=== PATIENT | female | born 1945 | race Hispanic/Latino ===

== ENCOUNTER 2019-07-06 06:55 | Inpatient (IN) | payer OTHER, SELFPAY ==
[2019-07-06] VITALS (15 sets, daily range): BP systolic 141–191; BP diastolic 66–93; PULSE 66–97; RESP 16–22; TEMP 36.4–36.9; O2SAT 96–99; BMI 25.8
--- NOTE | ~2019-07-06 | XR_ITS ---
EXAMINATION: XR chest 2V DATE: 07/06/2019 07:37 INDICATION: Chest pain. Heart racing shaking and cold. TECHNIQUE: frontal and lateral views of the chest were obtained. COMPARISON: Chest radiograph dated 06/29/19 FINDINGS: The lungs remain clear with no focal airspace opacities, pulmonary edema, pleural effusion or pneumot horax. The cardiomediastinal silhouette is normal. Atherosclerotic and tortuous thoracic aorta. Mild thoracic spondylosis. IMPRESSION: 1. No acute cardiopulmonary disease. Reviewed, dictated and finalized at location A. ET SEWING MACHINE OPERATOR
--- NOTE | 2019-07-06 07:13 | ECG_ITS ---
Measurements Intervals [place] Rate: 76 P: 57 [place]: 155 QRS: 60 QRSD: 90 T: 30 QT: 357 QTc: 404 Interpretive Statements SINUS RHYTHM BORDERLINE ST ABNORMALITY- LATERAL LEADS BASELINE ARTIFACT- I, II, III, AVR, AVL, AVF BORDERLINE ECG Electronically Signed On 07-06-2019 8:18:44 NITRATOR OPERATOR by Je Andujar D.O.
[2019-07-06 07:39] LABS: Basophils Absolute Auto 0.1 K/mm3 (0.0-0.1); Basophils Percent Auto 0.9 % (0.2-1.2); Eosinophils Absolute Auto 0.2 K/mm3 (0-0.3); Eosinophils Percent Auto 3.4 % (0-4.4); Hematocrit 35.5 % (37.0-47.0); Immature Granulocyte Absolute 0.02 K/mm3 (0.00-0.031); Immature Granulocyte Percent A 0.3 % (0-0.5); Lymphocytes Absolute Auto 1.65 K/mm3 (0.9-3.2); Lymphocytes Percent Auto 24.4 % (18.3-44.2); Mean Corpuscular HGB Conc 33.8 g/dl (32-36); Mean Corpuscular Hemoglobin 30.2 pg (26-34); Mean Corpuscular Volume 89.4 fl (80-100); Mean Platelet Volume 10.2 fl (7.4-10.4); Monocytes Absolute Auto 0.6 K/mm3 (0.1-0.6); Monocytes Percent Auto 8.9 % (2.6-8.5); Neutrophils Absolute Auto 4.2 K/mm3 (1.3-6.7); Neutrophils Percent Auto 62.1 % (45.5-73.1); Platelet Count Result 333 k/mm3 (150-375); Red Blood Count 3.97 M/mm3 (4.2-5.4); Red Cell Distribution Width 12.5 % (11.5-14.5); White Blood Count 6.8 K/mm3 (4.5-10.0)
[2019-07-06] MEDS: NITROGLYCERIN OINTMENT 1 INCH DOSE TRANSDERM (07:40)
--- NOTE | 2019-07-06 07:49 | ED.CHESTPAIN ---
HPI - Chest Pain General Chief Complaint: Chest Pain Stated Complaint: cp Time Seen by Provider: 07/06/19 06:59 Source: patient, family and old records reviewed Mode of arrival: ambulatory Limitations: language barrier (Patient Lithuanian-speaking, bilingual daughter translating effectively) History of Present Illness HPI narrative: Patient is a 74-year-old female who presents to the emergency department with her daughter with report of chest heaviness, shortness of breath, chills, and palpitations. Patient woke up with symptoms approximately an hour prior to arrival and was very shaky. Patient was just discharged from the hospital on 07/03/2019. She was admitted on 06/29/2019 for chest pain. She had unremarkable CT angiography of the chest to rule out pulmonary embolism and aortic pathology for her symptoms. She did have a positive stress test and was taken for cardiac catheterization. Patient was found to have multivessel coronary artery disease and had placement of 3 drug-eluting stents on 06/30/2019. Patient was taken back to the cardiac Supervisor Electronics Inspection for recurrent chest pain. Stents were found to be patent, but with sluggish blood flow. Patient was discharged home with numerous new medications. 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 Onset (ago): hour(s) Onset: during rest Quality: heaviness Associated symptoms: dyspnea, palpitations and other (chills) Risk Factors Coronary artery disease risk factors: hyperlipidemia and hypertension Related Data Home Medications Medication Instructions Recorded Confirmed Mexazolam 1 mg PO DAILY PRN 07/01/19 07/06/19 Neurobiotic 1.5 1 tab-cap BYMOUTH DAILY 07/01/19 07/06/19 Allergies Allergy/AdvReac Type Severity Reaction Status Date / Time No Known Allergies Allergy Verified 07/06/19 07:08 Review of Systems Review of Systems: All systems reviewed & are unremarkable except as noted in HPI and below Constitutional: Constitutional: Reports chills Cardiovascular: Cardiovascular: Reports chest pain, Reports rapid heart rate and Reports palpitations Respiratory: Respiratory: Reports dyspnea PMFSH Past Medical History Medical History (Updated 07/06/19 @ 12:29 by Patricia Hernandez MD) Anxiety CAD (coronary artery disease) Hyperlipidemia Hypertension Surgical History Surgical History (Updated 07/06/19 @ 12:09 by Mayra Mcintyre MD) History of bladder suspension procedure History of cardiac cath History of hysterectomy Family History Family History Other Cerebrovascular accident Unknown family medical history Social History Social History Social History: The patient is from the [place]. She lives with her daughter and her family for much of the year, but frequently returns to the [facility]. 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 She designates her daughter, Kayleigh Meneses, as her surrogate decision maker and she wishes to be a full code. She denies alcohol, tobacco, and drug abuse. Smoking status: Never smoker Exam Const: General: cooperative, no acute distress and alert Nutritional Appearance: well nourished Orientation/consciousness: oriented x3 Limitations: no limitations HENMT: Mouth: Yes lip normal and Yes moist mucous membranes Resp: Effort & Inspection: normal respiratory effort Auscultation: clear to auscultation bilaterally Cardio: Rate: regular rate Rhythm: regular rhythm GI: GI Palp: Yes soft and No tender Auscultation: normal bowel sounds Skin: General skin exam: normal color Neuro: General: oriented x3 Cognition (Neuro): normal cognition Speech: normal speech Extrem: General: normal to inspection, full ROM and no clubbing, cyanosis or edema Psych: Mental Status: mental status grossly normal Affect: normal affect Attitude: cooperative Course C
[2019-07-06 07:51] LABS: Partial Thromboplastin Time 27.1 SECONDS (22.3-36.8); Prothrombin Time 12.6 Seconds (11.1-14.7)
[2019-07-06 07:56] LABS: Alanine Aminotransferase 25 U/L (4-35); Albumin Level 4.4 g/dL (3.5-5.1); Alkaline Phosphatase 49 U/L (38-126); Aspartate Amino Transferase 32 U/L (14-36); Bilirubin,Total 0.4 mg/dL (0.2-1.3); Blood Urea Nitrogen 9 mg/dL (7-17); Calcium 9.5 mg/dL (8.4-10.2); Carbon Dioxide 25 mmol/L (22-30); Chloride 96 mmol/L (98-107); Estimated Glomerular Filt Rate > 60; Glucose 137 mg/dL (65-105); Potassium 4.3 mmol/L (3.4-5.0); Sodium 134 mmol/L (137-145)
[2019-07-06 08:03] LABS: NT Pro B Type Natriuretic Pept 508 PG/ML (5-100)
[2019-07-06] MEDS: ASPIRIN 81 MG CHEWABLE TABLET 324 MG PO (08:28)
--- NOTE | 2019-07-06 12:08 | PM.IMHP ---
H&P: HPI History of Present Illness Chief complaint: chest pain/elevated troponin Narrative: Date of service 07/06/2019 Jayshree Duron is a 74 year old female with past medical history of hypertension, number loss who was admitted on 06/30/2019 underwent cardiac catheterization for chest pain and received drug-eluting stent to left circumflex artery and to the LAD. She developed chest pain that night and was taken back to the fence laborer that showed patent stents in the LAD and the left circumflex artery. The cath films were reviewed myself and showed that she had a small jailed branch from the distal edge of stent. And then the terminal end of the left circumflex artery bifurcates and 1 of the small branches has 95% stenosis. Patient speaks Wallisian only and her daughter is at bedside who helped translate. She was sleeping at 5:00 a.m. this morning when she suddenly woke up feeling central chest heaviness associated with shortness of breath, shakiness. The pain was very intense and severe and relieved when she came into the emergency room after getting nitroglycerin. Denies dizziness, syncope, fever, runny nose, cough, sore throat, lower limb edema. On arrival to the emergency room her blood pressure was 190/90. EKG reviewed myself shows sinus rhythm and nonspecific ST changes in the lateral leads. First troponin was 1.6 and the 2nd troponin 1.34. Chest x-ray reviewed myself looks unremarkable. Review of Systems Review of Systems: All systems reviewed & are unremarkable except as noted in HPI and below Constitutional: Constitutional: Denies chills, Denies fatigue, Denies fever(s), Denies headache(s) and Denies snoring Eyes: Eyes: Denies eye discharge and Denies loss of vision ENT: Denies dizziness, Denies headache(s), Denies nasal discharge and Denies sore throat Cardiovascular: Cardiovascular: Reports as per HPI, Reports chest pain, Denies syncope, Denies rapid heart rate, Denies leg edema, Reports dyspnea, Denies dyspnea on exertion, Denies orthopnea and Denies paroxysmal nocturnal dyspnea Respiratory: Respiratory: Denies cough, Reports dyspnea, Denies dyspnea on exertion, Denies snoring and Denies wheezing Gastrointestinal: Gastrointestinal: Denies abdominal pain, Denies diarrhea, Denies nausea and Denies vomiting Genitourinary: Genitourinary: Denies hematuria, Denies urinary frequency, Denies dysuria and Denies flank pain Musculoskeletal: Musculoskeletal: Denies myalgias, Denies arthralgias and Denies joint swelling Neurologic: Denies Abnormal speech present, Denies dizziness, Denies syncope, Denies headache(s), Denies focal weakness, Denies loss of vision and Reports memory loss Psychiatric: Psychiatric: Denies anxiety and Denies depression Endocrine: Endocrine: Denies cold intolerance, Denies fatigue and Denies heat intolerance Hematologic/Lymphatic: Hematologic/Lymphatic: Denies easy bleeding and Denies easy bruising Allergic/Immunologic: Allergic/Immunologic: Denies urticaria and Denies wheezing PMFSH Past Medical History Medical History Anxiety CAD (coronary artery disease) Hyperlipidemia Hypertension Surgical History Surgical History (Updated 07/06/19 @ 12:09 by Mayra Mcintyre MD) History of bladder suspension procedure History of cardiac cath History of hysterectomy Family History Family History Other Cerebrovascular accident Unknown family medical history Social History Social History Social History: The patient is from the [place]. She lives with her daughter and her family for much of the year, but frequently returns to the [place]. 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 She designates her daughter, Kayleigh Meneses, as her surrogate decision maker and she wishes to be a full code. She denies alcohol, tobacco, and d
[2019-07-06] MEDS: ROSUVASTATIN 10 MG TABLET PO (13:44)
[2019-07-06] MEDS: AMLODIPINE BESYLATE 5 MG TABLET PO (13:44)
[2019-07-06] MEDS: lisinopriL 20 MG TABLET PO (13:44)
[2019-07-06] MEDS: carvediloL 12.5 MG TABLET PO ×2 (13:44→20:14)
[2019-07-06] MEDS: CLOPIDOGREL BISULFATE 75 MG TABLET PO (13:44)
[2019-07-06] MEDS: ASPIRIN 81 MG CHEWABLE TABLET PO (13:44)
[2019-07-06] MEDS: ACETAMINOPHEN 500 MG TABLET PO (17:07)
[2019-07-07] VITALS (16 sets, daily range): BP systolic 119–166; BP diastolic 67–79; PULSE 66–93; RESP 16–20; TEMP 36.2–36.8; O2SAT 97–100
[2019-07-07] MEDS: ASPIRIN 81 MG CHEWABLE TABLET PO (09:47)
[2019-07-07] MEDS: AMLODIPINE BESYLATE 5 MG TABLET PO (09:47)
[2019-07-07] MEDS: carvediloL 12.5 MG TABLET PO ×2 (09:47→20:32)
[2019-07-07] MEDS: lisinopriL 20 MG TABLET PO (09:48)
[2019-07-07] MEDS: ROSUVASTATIN 10 MG TABLET PO (09:48)
[2019-07-07] MEDS: CLOPIDOGREL BISULFATE 75 MG TABLET PO (09:48)
[2019-07-07] MEDS: ACETAMINOPHEN 500 MG TABLET PO (09:50)
--- NOTE | 2019-07-07 14:34 | PM.PNCARD ---
Progress Note: A&P Additional Plan This patient with multivessel coronary disease had stenting performed of high-grade lesions in her circumflex OM, proximal circumflex and proximal LAD last week. He does have known small vessel disease as detailed by my partners angiographically which is not really angiographically amenable to PCI but appears to be creating symptomatology. This needs to be treated medically. I do not see further reason to return her to the greens laborer as that was done last week with no problems identified in the large segments which were stented. I am going to add oral nitrates to her regimen as well and consider discharging her tomorrow if she is stable in ambulating on the floor without ischemic type chest pain. Time Spent With Patient Time with patient: 15 - 25 minutes Subjective Date/time seen: Date of service, 07/07/19 14:34 Interval history: Follow-up visit for patient with known coronary artery disease, recent percutaneous intervention and readmission with chest pain Patient appears to be very comfortable I do not believe she is having any ischemic chest pain at this time she describes momentary brief episodes of left inframammary pain. History is difficult and challenging as she speaks no Macedonian Exam Const: General: comfortable and no acute distress HENMT: Mouth: Yes moist mucous membranes Eyes: Sclera: sclerae normal Pupils: PERRL Neck: Neck: supple and no JVD Thyroid: thyroid normal Resp: Effort & Inspection: normal respiratory effort Auscultation: clear to auscultation bilaterally Cardio: Rate: regular rate Rhythm: regular rhythm Other: No murmurs gallops rubs or extra sounds GI: Auscultation: normal bowel sounds Skin: General skin exam: normal color Extrem: General: normal to inspection Objective Data Vital Signs Vital Signs: Vital Signs - 24 hr 07/06/19 16:00 07/06/19 17:20 07/06/19 18:00 Temperature 36.4 C L Pulse Rate 69 70 70 Respiratory Rate 20 Blood Pressure 169/77 H Pulse Oximetry 99 07/06/19 20:00 07/06/19 20:14 07/06/19 22:00 Temperature 36.9 C Pulse Rate 76 97 75 Respiratory Rate 18 Blood Pressure 146/66 H Pulse Oximetry 99 07/07/19 00:00 07/07/19 02:00 07/07/19 04:00 Temperature 36.8 C Pulse Rate 68 67 69 Respiratory Rate 16 18 Blood Pressure 142/71 H 166/75 H Pulse Oximetry 100 100 07/07/19 06:00 07/07/19 08:00 07/07/19 08:41 Temperature 36.2 C L Pulse Rate 66 67 70 Respiratory Rate 18 Blood Pressure 146/75 H Pulse Oximetry 97 07/07/19 09:47 07/07/19 10:00 07/07/19 12:00 Temperature Pulse Rate 72 76 74 Respiratory Rate Blood Pressure Pulse Oximetry 07/07/19 12:32 07/07/19 14:00 Temperature 36.7 C Pulse Rate 70 71 Respiratory Rate 16 Blood Pressure 119/69 Pulse Oximetry 98 Intake/Output Intake/Output: Intake & Output 07/04/19 07/05/19 07/06/19 07/07/19 23:59 23:59 23:59 23:59 Intake Total 920 660 Output Total 0 Balance 920 660 Meds/Results Medications: Active Medications Generic Name Dose Route Start Last Admin Trade Name Freq PRN Reason Stop Dose Admin Acetaminophen 500 mg 07/06/19 12:16 07/07/19 09:50 Tylenol Tablet PO 500 mg Q6H PRN Administration Mild Pain (1-3) or Fever Amlodipine Besylate 5 mg 07/06/19 09:00 07/07/19 09:47 Norvasc PO 5 mg QAM [facility] Administration Aspirin 81 mg 07/06/19 08:00 07/07/19 09:47 Aspirin Chewable PO 81 mg DAILY@0800 [facility] Administration Carvedilol 12.5 mg 07/06/19 12:20 07/07/19 09:47 Coreg PO 12.5 mg Q12HR [facility] Administration Clopidogrel Bisulfate 75 mg 07/06/19 09:00 07/07/19 09:48 Plavix PO 75 mg DAILY [facility] Administration Lisinopril 20 mg 07/06/19 09:00 07/07/19 09:48 Prinivil PO 20 mg QAM [facility] Administration Nitroglycerin 0.4 mg 07/06/19 12:18 Nitrostat Subl 0.4 Mg (1/150) SUBLINGUAL Q5MIN PRN Chest Pain Ondansetron HCl 4 mg 01
[2019-07-08] VITALS (21 sets, daily range): BP systolic 53–138; BP diastolic 34–72; PULSE 38–86; RESP 12–20; TEMP 36–36.4; O2SAT 95–100
[2019-07-08] MEDS: lisinopriL 20 MG TABLET PO (08:55)
[2019-07-08] MEDS: CLOPIDOGREL BISULFATE 75 MG TABLET PO (08:55)
[2019-07-08] MEDS: ROSUVASTATIN 10 MG TABLET PO (08:55)
[2019-07-08] MEDS: ASPIRIN 81 MG CHEWABLE TABLET PO (08:55)
[2019-07-08] MEDS: ISOSORBIDE MONONITRATE 30 MG TAB.ER.24H PO (08:55)
[2019-07-08] MEDS: AMLODIPINE BESYLATE 5 MG TABLET PO (08:55)
[2019-07-08] MEDS: carvediloL 12.5 MG TABLET PO ×2 (08:56→20:11)
--- NOTE | 2019-07-08 09:47 | ECG_ITS ---
Measurements Intervals [place] Rate: 64 P: 28 MD: 190 QRS: 31 QRSD: 89 T: 37 QT: 413 QTc: 427 Interpretive Statements SINUS RHYTHM VOLTAGE CRITERIA FOR LVH BORDERLINE ECG Electronically Signed On 07-08-2019 10:11:21 SENIOR PRODUCT ANALYST by Je Andujar D.O.
[2019-07-08 09:53] LABS: Glucose Point of Care 175 (65-105)
[2019-07-08] MEDS: SODIUM CHLORIDE 0.9% IV 500 ML 999 ML IV CONT (10:02)
--- NOTE | 2019-07-08 12:44 | PM.PNCARD ---
Progress Note: A&P Additional Plan Episode of symptomatic hypotension this morning obviously precludes consideration for discharge I will discontinue her amlodipine and isosorbide. I will reduce the dose of JONATHAN-inhibitor by 50% Continue aspirin dual anti-platelet therapy for now without changes Continue the beta-cristian for now without changes Click close observation for recurrent episodes of problematic hypotension Time Spent With Patient Time with patient: 15 - 25 minutes Subjective Date/time seen: Date of service, 07/08/19 12:44 Interval history: Follow-up visit in patient with coronary artery disease, recent percutaneous intervention and recurrent symptoms of chest pain requiring admission for evaluation Patient was doing very well until early this morning after her morning meds she became symptomatic lead hypotensive with systolic pressures in the mid 50s and became either poorly responsive or unresponsive. She regained responsiveness quickly after lying in bed in the Trendelenburg position for a few minutes Patient had no chest pain during the event today and ECG done in a stat fashion did not show any ST segment deviation. There were no arrhythmias on the monitor other than sinus bradycardia. Exam Const: General: comfortable and no acute distress HENMT: Mouth: Yes moist mucous membranes Eyes: Sclera: sclerae normal Pupils: PERRL Neck: Neck: supple and no JVD Thyroid: thyroid normal Resp: Effort & Inspection: normal respiratory effort Auscultation: clear to auscultation bilaterally Cardio: Rate: regular rate Rhythm: regular rhythm Other: No murmur no gallop no rub GI: Auscultation: normal bowel sounds Skin: General skin exam: normal color Extrem: General: normal to inspection Objective Data Vital Signs Vital Signs: Vital Signs - 24 hr 07/07/19 14:00 07/07/19 16:00 07/07/19 18:00 Temperature 36.7 C Pulse Rate 71 71 93 Respiratory Rate 20 Blood Pressure 138/79 Pulse Oximetry 98 07/07/19 20:00 07/07/19 20:32 07/07/19 22:00 Temperature 36.2 C L Pulse Rate 70 82 70 Respiratory Rate 16 Blood Pressure 147/67 H Pulse Oximetry 98 07/08/19 00:00 07/08/19 02:00 07/08/19 04:00 Temperature 36.3 C L Pulse Rate 65 64 61 Respiratory Rate 20 Blood Pressure 132/58 L 138/68 Pulse Oximetry 99 07/08/19 06:00 07/08/19 08:00 07/08/19 08:56 Temperature 36.2 C L Pulse Rate 64 69 74 Respiratory Rate 16 Blood Pressure 137/72 Pulse Oximetry 98 07/08/19 09:42 07/08/19 10:00 07/08/19 10:05 Temperature Pulse Rate 38 L Respiratory Rate Blood Pressure 53/34 L 53/34 L 83/48 L Pulse Oximetry 07/08/19 10:19 07/08/19 10:35 07/08/19 11:58 Temperature 36.0 C L Pulse Rate 58 L 66 Respiratory Rate 16 Blood Pressure 107/60 105/53 L Pulse Oximetry 100 07/08/19 12:00 Temperature Pulse Rate 63 Respiratory Rate Blood Pressure Pulse Oximetry Intake/Output Intake/Output: Intake & Output 07/05/19 07/06/19 07/07/19 07/08/19 23:59 23:59 23:59 23:59 Intake Total 920 1230 1050 Output Total 0 Balance 920 1230 1050 Meds/Results Medications: Active Medications Generic Name Dose Route Start Last Admin Trade Name Freq PRN Reason Stop Dose Admin Acetaminophen 500 mg 07/06/19 12:16 07/07/19 09:50 Tylenol Tablet PO 500 mg Q6H PRN Administration Mild Pain (1-3) or Fever Aspirin 81 mg 07/06/19 08:00 07/08/19 08:55 Aspirin Chewable PO 81 mg DAILY@0800 [facility] Administration Carvedilol 12.5 mg 07/06/19 12:20 07/08/19 08:56 Coreg PO 12.5 mg Q12HR [facility] Administration Clopidogrel Bisulfate 75 mg 07/06/19 09:00 07/08/19 08:55 Plavix PO 75 mg DAILY [facility] Administration Lisinopril 10 mg 07/08/19 12:44 Prinivil PO QAM [facility] Nitroglycerin 0.4 mg 07/06/19 12:18 Nitrostat Subl 0.4 Mg (1/150) SUBLINGUAL Q5MIN PRN Chest Pain Ondansetron HCl 4 mg 07/06/19 12:18
[2019-07-08] MEDS: ACETAMINOPHEN 500 MG TABLET PO (19:40)
[2019-07-09] VITALS (8 sets, daily range): BP systolic 115–142; BP diastolic 60–71; PULSE 64–88; RESP 16; TEMP 35.8–36.1; O2SAT 96–98
[2019-07-09 09:13] LABS: Glucose Point of Care 124 (65-105)
[2019-07-09] MEDS: lisinopriL 10 MG TABLET PO (09:45)
[2019-07-09] MEDS: carvediloL 12.5 MG TABLET PO (09:45)
[2019-07-09] MEDS: ASPIRIN 81 MG CHEWABLE TABLET PO (09:45)
[2019-07-09] MEDS: CLOPIDOGREL BISULFATE 75 MG TABLET PO (09:45)
[2019-07-09] MEDS: ROSUVASTATIN 10 MG TABLET PO (09:45)
--- NOTE | 2019-07-09 11:07 | PM.PNCARD ---
Progress Note: A&P Additional Plan Cardiovascular status appears to be stable for discharge Patient's daughter indicates she was on some type of anxiety medication prior to admission which I advised her to continue at home a particularly since she indicated that she was experiencing night terrors which were likely related to the symptomatology that prompted the readmission and the concern on the day of admission. Time Spent With Patient Time with patient: 15 - 25 minutes Subjective Date/time seen: Date of service, 07/09/19 11:07 Interval history: Follow-up visit for coronary artery disease, recent percutaneous revascularization and recurrent symptomatology. Patient feeling well this morning appears to be asymptomatic eating lunch with family. No cardiovascular symptoms No difficulty with problematic hypotension since medicines were adjusted yesterday(amlodipine and isosorbide were discontinued) . Patient's daughter confided with me today that she is suspicious that on the day of admission the problem was related to night terrors which the patient does have on occasion and with related to the symptomatology that prompted the readmission. Exam Const: General: comfortable and no acute distress HENMT: Mouth: Yes moist mucous membranes Eyes: Sclera: sclerae normal Pupils: PERRL Neck: Neck: supple and no JVD Thyroid: thyroid normal Resp: Effort & Inspection: normal respiratory effort Auscultation: clear to auscultation bilaterally Cardio: Rate: regular rate Rhythm: regular rhythm Other: No murmurs gallops or rubs GI: Auscultation: normal bowel sounds Extrem: General: normal to inspection Objective Data Vital Signs Vital Signs: Vital Signs - 24 hr 07/08/19 11:58 07/08/19 12:00 07/08/19 14:16 Temperature 36.0 C L Pulse Rate 66 63 70 Respiratory Rate 16 Blood Pressure 105/53 L Pulse Oximetry 100 07/08/19 16:00 07/08/19 18:31 07/08/19 19:33 Temperature 36.4 C 36.3 C L Pulse Rate 68 86 75 Respiratory Rate 12 18 Blood Pressure 112/64 115/57 L Pulse Oximetry 95 98 07/08/19 20:00 07/08/19 20:11 07/08/19 22:00 Temperature Pulse Rate 71 81 69 Respiratory Rate Blood Pressure Pulse Oximetry 07/08/19 23:48 07/09/19 00:00 07/09/19 02:00 Temperature Pulse Rate 71 67 65 Respiratory Rate Blood Pressure 121/60 Pulse Oximetry 98 07/09/19 03:53 07/09/19 04:00 07/09/19 05:59 Temperature 36.1 C L Pulse Rate 65 64 66 Respiratory Rate 16 Blood Pressure 115/60 Pulse Oximetry 98 07/09/19 08:00 07/09/19 09:45 07/09/19 10:10 Temperature 35.8 C L Pulse Rate 84 70 68 Respiratory Rate 16 Blood Pressure 142/71 H Pulse Oximetry 96 Intake/Output Intake/Output: Intake & Output 07/06/19 07/07/19 07/08/19 07/09/19 23:59 23:59 23:59 23:59 Intake Total 920 1230 1920 1070 Output Total 0 400 Balance 920 1230 1920 670 Meds/Results Medications: Active Medications Generic Name Dose Route Start Last Admin Trade Name Freq PRN Reason Stop Dose Admin Acetaminophen 500 mg 07/06/19 12:16 07/08/19 19:40 Tylenol Tablet PO 500 mg Q6H PRN Administration Mild Pain (1-3) or Fever Aspirin 81 mg 07/06/19 08:00 07/09/19 09:45 Aspirin Chewable PO 81 mg DAILY@0800 [facility] Administration Carvedilol 12.5 mg 07/06/19 12:20 07/09/19 09:45 Coreg PO 12.5 mg Q12HR [facility] Administration Clopidogrel Bisulfate 75 mg 07/06/19 09:00 07/09/19 09:45 Plavix PO 75 mg DAILY [facility] Administration Lisinopril 10 mg 07/08/19 12:44 07/09/19 09:45 Prinivil PO 10 mg QAM [facility] Administration Nitroglycerin 0.4 mg 07/06/19 12:18 Nitrostat Subl 0.4 Mg (1/150) SUBLINGUAL Q5MIN PRN Chest Pain Ondansetron HCl 4 mg 07/06/19 12:18 Zofran Inj IV PUSH Q6H PRN Nausea And Vomiting Rosuvastatin Calcium 10 mg 07/06/19 09:00 07/09/19 09:45 Crestor PO 10 mg DAILY [facility] Administration Radi
--- NOTE | 2019-08-24 06:52 | PM.DS ---
DS: Diagnosis Admitting Diagnosis Admitting Diagnosis: Chest pain, unspecified DS: Summary Hospital Course Reason for hospitalization: History of coronary artery disease, recent PCI, recurrence chest pain Hospital Course: This is a 74-year-old patient with a history of coronary artery disease who recently underwent PCI to her circumflex and LAD and since then has been having recurrent episodes of momentary sharp fleeting episodes of chest pain that are very atypical of myocardial ischemia. She has been admitted to the hospital a couple of times since then because of these symptoms and concern regarding her cardiac status. On the 1st of these episodes she was brought back to the cardiac catheterization lab and found angiographically to have patent stents. She does have some distal disease in her OM circumflex distal to the area that was stented which is not amenable to PCI which presumably was the cause of some of her symptoms. Most of her symptoms however were very atypical and non antral by history. There was significant difficulty with the patient's evaluation clinically because she does not speak [place] and all the history is obtained through either family members or interpreters. In addition to this she has a significant anxiety which results in additional concern regarding her symptomatology. In any event she was hospitalized and observed in the hospital for couple of days her biomarkers did not show any evidence of acute coronary syndrome and her ECGs did not show any evidence of abrupt stent thrombosis. She did have some symptomatic hypotension and medications were adjusted to address that. She appeared to be stable at the time of discharge and was discharged to home with her family. Status at Discharge Functional status at discharge: independent ambulation Overall status at discharge: patient is back to baseline Time Spent with Patient Time attestation: Total time spent providing and/or coordinating discharge services: Time spent: Greater than 30 minutes Exam Const: General: comfortable and no acute distress HENMT: Mouth: Yes moist mucous membranes Eyes: Sclera: sclerae normal Pupils: Equal, round and reactive pupils present Neck: Neck: supple and no JVD Thyroid: thyroid normal Resp: Effort & Inspection: normal respiratory effort Auscultation: clear to auscultation bilaterally Cardio: Rate: regular rate Rhythm: regular rhythm Other: No murmur no gallop no rub GI: GI Palp: Yes Soft to palpation Auscultation: normal bowel sounds Skin: General skin exam: normal color Extrem: General: normal to inspection Discharge Plan Discharge Attending physician on discharge: Florentino Walls Consulting providers: Je Andujarert,Tone Discharging Clinician: Florentino Walls Anticipated Discharge Date/Time: 07/09/19 11:12 Patient Disposition: Home, Self-Care Activity: may shower, no straining and other - see discharge instructions Diet: heart healthy Discharge Instructions: CARDIOLOGY DISCHARGE INSTRUCTIONS HERE: ACTIVITY: Activity with precautions to avoid falls. Rise slowly from a seated or lying position. No strenuous exercise or activity. May walk. Avoid excessive heat or cold. Stay hydrated. FOLLOW-UP: Follow up with [facility] office [address] with Sydnie De Leon NP on July 27, 2019 at 3:00 p.m.. Please arrive by 3:15 p.m. for your appointment. Bring photo ID, insurance card(s) and current medication list. Sign up for [employer]. The activation code is on your appointment confirmation. WOUND CARE: Leave right groin site open to air. Wash gently pat dry when showering. Patient Instructions: Antibiotic Form, Chest Pain (GEN), Pain Management (DC) Patient Language: [place] Stand Alone Forms: General Discharge Information Follow-up/Referrals: Florentino Walls MD [Physician] - Discharge Medicat
== END 2019-07-09 11:49 | disposition home or self-care (01) | DRG 198 ==
LOC: ANHED 09:44 → ANHIMU 10:10
PROVIDERS: Admitting Provider Internal Medicine Cardiovascular Disease; Emergency Provider Emergency Medicine; PCP Family Medicine; Visit Provider Specialist
DX: R07.9 Chest pain, unspecified (principal); I10 Essential (primary) hypertension; Z95.5 Presence of coronary angioplasty implant and graft; E78.5 Hyperlipidemia, unspecified; F41.9 Anxiety disorder, unspecified; I25.10 Atherosclerotic heart disease of native coronary artery without angina pectoris; Z90.710 Acquired absence of both cervix and uterus; I95.9 Hypotension, unspecified; F51.4 Sleep terrors [night terrors]; Z28.21 Immunization not carried out because of patient refusal
CPT/HCPCS: 36415; 71046; 80053; 83880; 84484; 85025; 85610; 85730; 87804; 93005; 99285; A9270; J7030; J7040

== ENCOUNTER 2019-07-30 02:07 | Observation (INO) | payer OTHER, SELFPAY ==
[2019-07-30] VITALS (14 sets, daily range): BP systolic 146–191; BP diastolic 75–104; PULSE 59–95; RESP 14–20; TEMP 36.1–37.1; O2SAT 96–100
--- NOTE | ~2019-07-30 | XR_ITS ---
XR chest 1V portable DATE: 07/30/2019 02:58 INDICATION: Left-sided chest pain. Coronary disease, hypertension TECHNIQUE: Portable AP chest on 07/30/2019 at 0249 hours COMPARISON: 07/10/2019 portable AP chest FINDINGS: There is mild atelectasis in the lower lung zones. The lungs otherwise appear clear. Heart size is within normal range. There is aortic calcification. No pleural effusion or pulmonary va scular congestion or pneumothorax. IMPRESSION: Mild atelectasis in the lower lung zones, new since 07/10/2019 Reviewed, dictated and finalized at location A. AR MAKER
--- NOTE | ~2019-07-30 | US_ITS ---
EXAMINATION: US carotid duplex BI DATE: 07/31/2019 13:49 INDICATION: Syncope. TECHNIQUE: Grayscale, color Doppler, and pulsed Doppler images of the cervical carotid arteries were obtained. The degree of vessel stenosis is placed in one of the following categories: normal, <50%, 5 0-69%, >=70% but less than near-occlusion, near-occlusion, or total occlusion. Note that percent sten osis relative to normal distal artery lumen diameter is indirectly measured from velocity measurement s as described by Jonh, et al. Radiology 2003; 229:340-346. COMPARISON: None. FINDINGS: RIGHT: The right common carotid artery (CCA) peak systolic velocity (PSV) is 74 cm/s. The right internal car otid artery (ICA) PSV is 74 cm/s. The right ICA end-diastolic velocity (EDV) is 11 cm/s. The right IC A/CCA PSV ratio is 1.0. Grayscale and color Doppler images yield an estimate of <50% diameter reducti on from plaque in the ICA. There is antegrade flow in the right vertebral artery. LEFT: The left CCA PSV is 67 cm/s. The left ICA PSV is 126 cm/s. The left ICA EDV is 16 cm/s. The left ICA/ CCA PSV ratio is 1.9. Grayscale and color Doppler images yield an estimate of >=50% diameter reductio n from plaque in the ICA. There is antegrade flow in the left vertebral artery. IMPRESSION: 1. <50% stenosis in the right internal carotid artery. 2. 50-69% stenosis in the left internal carotid artery. Reviewed, dictated and finalized at location A. VIOR THERAPIST
--- NOTE | ~2019-07-30 | MR_ITS ---
EXAMINATION: MR brain/brain stem wo/w con EXAM DATE: 07/31/2019 13:20 INDICATION: Left facial paresthesia. TECHNIQUE: Magnetic resonance imaging (MRI) of the brain/brain stem obtained without contrast. Sagit cristopher T1, axial diffusion, gradient echo (T2*), T1, T2, FLAIR sequences obtained. Patient was then inj ected with 12 cc intravenous Multihance contrast. Axial and coronal postcontrast T1 weighted sequence s obtained. There is no prior study for comparison. FINDINGS: There are no areas of restricted diffusion to suggest acute infarction. There is no acute hemorrhage seen on the T2*, a hemosiderin sensitive sequence. No intraparenchymal brain mass lesion. There is mild periventricular and subcortical T2/FLAIR signal hyperintensity, nonspecific but probab ly related to small vessel ischemic disease (microangiopathy). There are no extra-axial collections . Flow voids are seen in the cerebral arteries on the T2-weighted sequences consistent with their ex pected patency. The orbits are unremarkable. Soft tissue is unremarkable. There are no areas of ab normal enhancement on the postcontrast images. Small right mastoid effusion. Left sphenoid is opacifi ed. IMPRESSION: 1. No acute intracranial findings. 2. Left sphenoid sinus opacified. 3. Mild microangiopathy. Reviewed, dictated and finalized at location B. GER
--- NOTE | 2019-07-30 02:09 | ECG_ITS ---
Measurements Intervals [place] Rate: 64 P: 12 [place]: 184 QRS: 3 QRSD: 88 T: 35 QT: 404 QTc: 417 Interpretive Statements SINUS RHYTHM VOLTAGE CRITERIA FOR LVH CANNOT RULE OUT SEPTAL INFARCT, AGE INDETERMINATE ABNORMAL ECG Electronically Signed On 07-30-2019 7:21:41 EMT B by Je Andujar D.O.
--- NOTE | 2019-07-30 02:11 | ED.CHESTPAIN ---
HPI - Chest Pain General Chief Complaint: Chest Pain Stated Complaint: CP Time Seen by Provider: 07/30/19 02:08 Source: patient and RN notes reviewed Mode of arrival: EMS Limitations: language barrier History of Present Illness HPI narrative: Pt is a 74 y/o female presenting to the ED via EMS c/o CP. Pt reports she woke up and had CP described as pressure earlier tonight. Pt also reports shaking and palpitations, but denies SOB or N/V. Pt states she was recently admitted due to this facility for 4 days. Pt notes she feels mildly better than from the onset of her Sx's. HPI is limited due to pt/physician language barrier. All information translated by [employer] Assistant Field Hockey Coach. Onset (ago): unknown (Earlier tonight) Timing of current episode: other (Alleviated) Quality: other (Pressure) Associated symptoms: palpitations and other (Shaking) Related Data Home Medications Medication Instructions Recorded Confirmed Mexazolam 1 mg PO DAILY PRN 07/01/19 07/10/19 lorazepam 1 mg PO DAILY PRN 07/10/19 07/10/19 Allergies Allergy/AdvReac Type Severity Reaction Status Date / Time No Known Allergies Allergy Verified 07/10/19 11:15 Review of Systems Review of Systems: Narrative: ROS is limited due to pt/physician language barrier. All information translated by [employer] Assistant Field Hockey Coach. All systems reviewed & are unremarkable except as noted in HPI and below Constitutional: Constitutional: Reports other (Shaking) Cardiovascular: Cardiovascular: Reports chest pain and Reports palpitations Respiratory: Respiratory: Denies dyspnea Gastrointestinal: Gastrointestinal: Denies nausea and Denies vomiting PMFSH Past Medical History Medical History Anxiety Anxiety disorder CAD (coronary artery disease) Chest pain Hyperlipidemia Hypertension Hypokalemia Surgical History Surgical History History of bladder suspension procedure History of cardiac cath History of hysterectomy Hx of heart artery stent x3 Family History Family History Other Cerebrovascular accident Unknown family medical history Social History Social History Social History: The patient is from the [place]. She lives with her daughter and her family for much of the year, but frequently returns to the [place]. 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 She designates her daughter, Kayleigh Meneses, as her surrogate decision maker and she wishes to be a full code. She denies alcohol, tobacco, and drug abuse. She tells me that she had 4 children raised a granddaughter so she considered 5 children Smoking status: Never smoker Alcohol intake: never Substance use: never Substance use type: does not use Gender identity (if verbalized by the patient): Female Spiritual care concerns: No Agree to blood products: Yes Exam Narrative: Exam Narrative: APPEARANCE: No acute distress, nontoxic, resting in bed EYES: EOMI HEENT: Normocephalic, atraumatic, OMM RESPIRATORY: No respiratory distress Clear to auscultation bilaterally with no rhonchi wheezing or rales. CARDIOVASCULAR: Regular rate and rhythm without murmurs rubs or gallops. ABDOMINAL: Soft, nontender, nondistended, no rebound or guarding MUSCULOSKELETAl: Moves all extremities. No clubbing, cyanosis or edema. NEURO: Awake and alert. Following commands, speech normal, no focal deficits SKIN:: Warm, dry. No rashes lesions or abrasions PSYCHIATRIC: Normal affect/mood, Course Course Emergency Course: Reviewed old records Discussed with Dr. Borden for cardiology presentation work-up. At this time he recommends admission of the patient with serial troponins with cardiology to follow as inpatient Discussed with patient and family results of workup and diagnosis. Discussed need for admission. Patient and family
[2019-07-30 02:41] LABS: Basophils Percent Auto 0.7 % (0.2-1.2); Eosinophils Absolute Auto 0.2 K/mm3 (0-0.3); Eosinophils Percent Auto 3.5 % (0-4.4); Hemoglobin 12.1 g/dL (12.0-15.0); Immature Granulocyte Absolute 0.02 K/mm3 (0.00-0.031); Immature Granulocyte Percent A 0.3 % (0-0.5); Lymphocytes Absolute Auto 1.56 K/mm3 (0.9-3.2); Lymphocytes Percent Auto 25.7 % (18.3-44.2); Mean Corpuscular HGB Conc 33.6 g/dl (32-36); Mean Corpuscular Hemoglobin 30.5 pg (26-34); Mean Corpuscular Volume 90.7 fl (80-100); Mean Platelet Volume 10.4 fl (7.4-10.4); Monocytes Absolute Auto 0.5 K/mm3 (0.1-0.6); Monocytes Percent Auto 8.9 % (2.6-8.5); Neutrophils Absolute Auto 3.7 K/mm3 (1.3-6.7); Neutrophils Percent Auto 60.9 % (45.5-73.1); Platelet Count Result 245 k/mm3 (150-375); Red Blood Count 3.97 M/mm3 (4.2-5.4); Red Cell Distribution Width 12.7 % (11.5-14.5); White Blood Count 6.1 K/mm3 (4.5-10.0)
[2019-07-30 02:49] LABS: Prothrombin Time 12.4 Seconds (11.1-14.7)
[2019-07-30 02:51] LABS: Partial Thromboplastin Time 28.1 SECONDS (22.3-36.8)
[2019-07-30 02:54] LABS: Alanine Aminotransferase 24 U/L (4-35); Albumin Level 4.1 g/dL (3.5-5.1); Alkaline Phosphatase 47 U/L (38-126); Aspartate Amino Transferase 25 U/L (14-36); Bilirubin,Total 0.2 mg/dL (0.2-1.3); Blood Urea Nitrogen 13 mg/dL (7-17); Calcium 9.3 mg/dL (8.4-10.2); Carbon Dioxide 23 mmol/L (22-30); Chloride 97 mmol/L (98-107); Estimated CRCL calculation 83 ml/min; Estimated Glomerular Filt Rate > 60; Glucose 146 mg/dL (65-105); Lipase 166 U/L (23-300); Potassium 3.9 mmol/L (3.4-5.0); Sodium 132 mmol/L (137-145)
[2019-07-30 03:06] LABS: Troponin I < 0.012 ng/mL (0.000-0.034)
--- NOTE | 2019-07-30 03:25 | PC.NURSE ---
Patient states she was previously living at home, spent 4 days in the hospital, and has been at her facility for one day. Pt states she was laying down to go to bed when pressure started, and states she thinks she is just homesick and has anxiety about being at a new place. Pt reports pain is better at this time. Pt states we can call her daughter, Kayleigh, or son-in-law, Lance, later this morning if we have questions or concerns at .
--- NOTE | 2019-07-30 05:18 | PC.NURSE ---
Per patient request, called and spoke with patient's daughter, Kayleigh, and updated her on patient condition. She states she will come to ED as soon as she is able.
--- NOTE | 2019-07-30 06:06 | PC.NURSE ---
Patient's daughter, Kayleigh, at bedside. Daughter states that patient normally takes lorazepam every night before bed, and voices concern that patient may not have received it last night before bed at her facility, which may have triggered her anxiety during the night. Patient is currently resting comfortably in stretcher in NAD, conversing with daughter. Call light remains within reach.
[2019-07-30 06:20] LABS: Troponin I < 0.012 ng/mL (0.000-0.034)
--- NOTE | 2019-07-30 06:27 | PC.NURSE ---
MD updated patient and daughter of plan to admit. Pt and daughter aware pt will be admitted to room 214.
--- NOTE | 2019-07-30 07:00 | ADMGEN ---
This patient, Jayshree Duron, was admitted to IMU Room 205-01. Patient/family oriented to hospital policies and general routines including ID bracelet, bed and alarms, visiting hours, pain management, procedures, bathroom and other care routines, personal items, smoking policy, room service/diet, and visiting hours. Valuables list has been completed. Information on how to activate the Rapid Response Team has been discussed. Patient/Family are encouraged to report perceived risks to care and to ask questions if they do not understand what they are told or what they should do.
--- NOTE | 2019-07-30 12:05 | PM.CNCAR ---
Assessment and Plan Assessment and plan (1) Chest pain: Code(s): R07.9 - Chest pain, unspecified Status: Acute Assessment and Plan: continue rule out for myocardial infarction. May be related branch vessel disease. Will start low-dose were Ranexa 500 mg p.o. b.i.d.. Continue her carvedilol and lisinopril, aspirin , clopidogrel and rosuvastatin. (2) Anxiety disorder: Code(s): F41.9 - Anxiety disorder, unspecified Status: Acute Assessment and Plan: on benzodiazepine (3) Facial numbness: Code(s): R20.0 - Anesthesia of skin Status: Acute Assessment and Plan: she may need further workup including possible CT / MRI of the brain but will defer to the hospitalist or even neurological evaluation (4) Urinary tract infection symptoms: Code(s): R39.9 - Unspecified symptoms and signs involving the genitourinary system Status: Acute Assessment and Plan: will repeat a UA (5) Hyperlipidemia: Code(s): E78.5 - Hyperlipidemia, unspecified Status: Acute Assessment and Plan: on statin (6) Hypertension: Code(s): I10 - Essential (primary) hypertension Status: Acute Assessment and Plan: above goal. Will increase her lisinopril up to 10 mg daily History of Present Illness History of Present Illness Consult date/time: 07/30/19 12:05 Requesting physician: Sanford Mckinney DO Consult reason: chest pain Reason For Visit: Chest Pain Narrative: date of service 07/30/2019 History: Patient is a 74-year-old female. Interpretation is done with the assistance of her daughter. Patient is a known to our service as she has had several admissions lately. She did undergo a cardiac catheterization in June 2019 with drug-eluting stent to the circumflex and LAD. Later that night she developed chest pain again and she was taken back to the cardiac catheterization lab which revealed patent stents but with a 95% stenosis at the end of the circumflex / small OM branches. There is also small jailed branch. She came to the hospital from the retirement because of shaking. Patient has been treated for urinary tract infection recently. Reportedly she was shaking, confused as well as having some facial numbness. Left side of her face is reportedly numb as well as her lips. She was confused as well. Whenever she arrived in the emergency department she also describes some chest tightness. Chest pain radiates to the shoulder area. No associated nausea sweatiness but she has been feeling hot. She does have associated shortness of breath. She has had no palpitations, paroxysmal nocturnal dyspnea or orthopnea. Her EKG is unremarkable. The EKG is personally reviewed. Troponins are negative to this point. She still has mild residual pain. Numbness of the face though Persists. Review of Systems Review of Systems: All systems reviewed & are unremarkable except as noted in HPI and below Constitutional: Constitutional: Reports weakness Eyes: Eyes: Denies blurry vision ENT: Reports Normal hearing present Cardiovascular: Cardiovascular: Reports chest pain Respiratory: Respiratory: Reports dyspnea Gastrointestinal: Gastrointestinal: Denies abdominal pain and Denies bloating Genitourinary: Genitourinary: Denies hematuria Musculoskeletal: Musculoskeletal: Denies neck pain Integumentary/Breasts: Skin/Breast: Denies dry skin and Denies unusual bruising Neurologic: Reports numbness Psychiatric: Psychiatric: Reports anxiety and Denies confusion Endocrine: Comments: sensation of feeling hot Hematologic/Lymphatic: Hematologic/Lymphatic: Denies easy bleeding Allergic/Immunologic: Allergic/Immunologic: Denies lip swelling PMFSH Past Medical History Medical History Anxiety Anxiety disorder CAD (coronary artery disease) Chest pain Hyperlipidemia Hypertension
[2019-07-30 13:03] LABS: Troponin I < 0.012 ng/mL (0.000-0.034)
[2019-07-30] MEDS: ACETAMINOPHEN 325 MG TABLET 650 MG PO (14:00)
--- NOTE | 2019-07-30 16:21 | PM.IMHP ---
H&P: HPI History of Present Illness Chief complaint: Chest Pain Narrative: Jayshree Duron is a 74 year old female with dementia and CAD here for chest pain and left facial numbness. Patient is Portuguese-speaking only. Her daughter is at bedside and translates. History is limited because of the patient's dementia however. Patient was hospitalized here in June 30 for chest pain. She underwent left heart catheterization which showed coronary disease requiring a BRYAN in the LAD, a BRYAN in the proximal circumflex and a BRYAN in the OM circumflex branch. There was a small distal circumflex branch of 90% stenosis that was too small for PCI. Patient returned to the hospital on July 06 for complaints of chest pain and found to have elevated troponins. It was felt related to small-vessel disease. Patient return to the emergency room on July 10 for syncope and found to have elevated troponins again. [place] the syncope related to low blood pressure from her mediations. These were adjusted. Patient discharged home on July 13. Since being at home patient has been having difficulty with confusion. She has been taking too many pills at times. Daughter states she would to nose find the pills in the trash can. Patient lives with her daughter, son-in-law and 4 grandchildren. Patient is home alone at times and gets disoriented. The patient was diagnosed with a bladder infection about 5 days ago. Patient was moved to [facility] days ago. The daughter has some care issues related to the [facility]. Patient was doing well yesterday playing bingo and visiting with family. She had no complaints at that time. Sometime last evening, patient developed chest pain that she describes as a squeezing. She also was having numbness in the left side of face, perioral region, left side of her neck and left chest. No weakness in arms or legs. When asked more questions specifically about this, the daughter states the patient is just more confused and thus history is limited in this regard. It is difficult to determine how long her symptoms have been going on. Patient also has been feeling shaky and has significant anxiety issues. 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 Vital signs are stable except blood pressure was elevated 147/104. Troponin negative. EKG showed no acute changes. Chest x-ray showed atelectasis in the lower lung medrano. Patient given a GI cocktail and admitted for further care. [facility] Past Medical History Medical History Anxiety disorder CAD (coronary artery disease) BRYAN in LAD, Circ and OM branch on 06/30/19; small vessel disease Hyperlipidemia Hypertension Surgical History Surgical History History of bladder suspension procedure History of cardiac cath History of hysterectomy Hx of heart artery stent x3 06/30/19 Family History Family History Daughter No problems noted. Other Cerebrovascular accident Unknown family medical history Social History Social History Social History: The patient is from the [place] and has been frequently returning their to stay with family. Here, she was living with her daughter and her family for much of the year but moved to [place] 2 days ago. 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 She designates her daughter, Kayleigh Meneses, as her surrogate decision maker and she is a full code. She denies alcohol, tobacco, and drug abuse. Smoking status: Never smoker Alcohol intake: never Substance use: never Substance use type: does not use Gender identity (if verbalized by the patient): Female Spiritual care concerns: No Agree to blood products: Yes Meds Home Medications and Allergies Home Medication
[2019-07-30] MEDS: RANOLAZINE 500 MG TAB.ER.12H PO (19:35)
[2019-07-30] MEDS: carvediloL 12.5 MG TABLET PO (20:33)
[2019-07-30] MEDS: lisinopriL 10 MG TABLET PO (21:36)
[2019-07-31] VITALS (16 sets, daily range): BP systolic 128–205; BP diastolic 79–99; PULSE 63–109; RESP 16–20; TEMP 35.7–37.1; O2SAT 97–100
--- NOTE | 2019-07-31 | ECHO_ITS ---
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 Summary 1. Left atrial chamber dimension is mildly enlarged. 2. Normal left ventricular size and thickness with good overall contractility and no focal wall motion abnormalities. The ejection fraction is calculated to be 60%. Diastolic dysfunction, grade 1, is-present. The global longitudinal strain pattern is-17% which is very mildly abnormal, suggesting possible early systolic dysfunction. 3. There is trace aortic, mitral and tricuspid valve regurgitation. 4. There is mild aortic atherosclerosis. Left Ventricle Left ventricular chamber dimension is normal. Left ventricular systolic function is normal, estimated at 60-65%. There is no increased left ventricular wall thickness. Left ventricular septal wall motion is normal. The left ventricular diastolic function is grade I diastolic dysfunction. Normal left ventricular size and thickness with good overall contractility and no focal wall motion abnormalities. The ejection fraction is calculated to be 60%. Diastolic dysfunction, grade 1, is-present. The global longitudinal strain pattern is-17% which is very mildly abnormal, suggesting possible early systolic dysfunction. Right Ventricle Right ventricular chamber dimension is normal. Right ventricular systolic function is normal. Left Atria Left atrial chamber dimension is mildly enlarged. Right Atria Right atrial chamber dimension is normal. Aortic Valve The aortic valve is trileaflet. There is no aortic valve sclerosis. There is no aortic valve stenosis. There is trace aortic, mitral and tricuspid valve regurgitation. Pulmonic Valve The pulmonic valve is normal. There is no pulmonic valve stenosis. There is no pulmonic regurgitation. Mitral Valve The mitral valve has normal leaflets. There is no mitral valve stenosis. There is trace mitral valve regurgitation. Tricuspid Valve The tricuspid valve leaflets are normal. There is no significant tricuspid valve stenosis. There is trace tricuspid valve regurgitation. No pulmonary hypertension, estimated pulmonary arterial systolic pressure is Empty. Pericardium/Pleural The pericardium appears normal. There is no pericardial effusion. Inferior Vena Cava Normal inferior vena cava with >50% collapse upon inspiration consistent with Empty right atrial pressure, Empty. Aorta The aortic root size at the sinus of Valsalva is normal. The prox ascending aorta size is normal. There is mild aortic atherosclerosis. Left Ventricular Outflow Tract Name Value Normal LVOT 2D LVOT Diameter
[2019-07-31] MEDS: METOPROLOL TARTRATE INJ 5 MG/5 ML VIAL IV PUSH (01:10)
[2019-07-31 05:10] LABS: Basophils Percent Auto 0.5 % (0.2-1.2); Eosinophils Absolute Auto 0.2 K/mm3 (0-0.3); Eosinophils Percent Auto 2.7 % (0-4.4); Hematocrit 38.9 % (37.0-47.0); Hemoglobin 13.1 g/dL (12.0-15.0); Immature Granulocyte Absolute 0.01 K/mm3 (0.00-0.031); Immature Granulocyte Percent A 0.2 % (0-0.5); Lymphocytes Percent Auto 30.1 % (18.3-44.2); Mean Corpuscular HGB Conc 33.7 g/dl (32-36); Mean Corpuscular Hemoglobin 30.3 pg (26-34); Mean Platelet Volume 10.5 fl (7.4-10.4); Monocytes Absolute Auto 0.6 K/mm3 (0.1-0.6); Monocytes Percent Auto 11.2 % (2.6-8.5); Neutrophils Absolute Auto 3.1 K/mm3 (1.3-6.7); Neutrophils Percent Auto 55.3 % (45.5-73.1); Platelet Count Result 261 k/mm3 (150-375); Red Blood Count 4.32 M/mm3 (4.2-5.4); Red Cell Distribution Width 12.7 % (11.5-14.5); White Blood Count 5.6 K/mm3 (4.5-10.0)
[2019-07-31 05:17] LABS: Blood Urea Nitrogen 10 mg/dL (7-17); Calcium 9.5 mg/dL (8.4-10.2); Carbon Dioxide 24 mmol/L (22-30); Chloride 95 mmol/L (98-107); Estimated CRCL calculation 71 ml/min; Estimated Glomerular Filt Rate > 60; Glucose 128 mg/dL (65-105); Potassium 3.8 mmol/L (3.4-5.0); Sodium 132 mmol/L (137-145)
[2019-07-31 06:28] LABS: Folic Acid > 20.0 ng/mL (2.76->20)
[2019-07-31] MEDS: lisinopriL 10 MG TABLET PO ×2 (10:34→14:25)
[2019-07-31] MEDS: carvediloL 12.5 MG TABLET PO ×2 (10:34→20:20)
[2019-07-31] MEDS: CLOPIDOGREL BISULFATE 75 MG TABLET PO (10:34)
[2019-07-31] MEDS: RANOLAZINE 500 MG TAB.ER.12H PO ×2 (10:34→20:20)
[2019-07-31] MEDS: ASPIRIN 81 MG CHEWABLE TABLET PO (10:34)
[2019-07-31] MEDS: ROSUVASTATIN 10 MG TABLET PO (10:34)
--- NOTE | 2019-07-31 10:53 | PM.PNCARD ---
Progress Note: A&P Assessment and Plan (1) Chest pain: Qualifiers: Chest pain type: chest pain due to myocardial ischemia Ischemic chest pain type: stable angina pectoris Qualified Code(s): I20.8 - Other forms of angina pectoris Code(s): R07.9 - Chest pain, unspecified Status: Acute Assessment and Plan: May be related branch vessel disease. Troponin negative x3. Continue carvedilol and lisinopril, aspirin , clopidogrel and rosuvastatin. Continue Ranexa 500 mg b.i.d.. (2) Anxiety disorder: Qualifiers: Anxiety disorder type: generalized anxiety disorder Qualified Code(s): F41.1 - Generalized anxiety disorder Code(s): F41.9 - Anxiety disorder, unspecified Status: Acute Assessment and Plan: On benzodiazepine Management per hospitalist service (3) Facial numbness: Code(s): R20.0 - Anesthesia of skin Status: Acute Assessment and Plan: May need further workup including possible CT / MRI of the brain but will defer to the hospitalist and neurological evaluation (4) Urinary tract infection symptoms: Code(s): R39.9 - Unspecified symptoms and signs involving the genitourinary system Status: Acute Assessment and Plan: Repeat UA noted. Management per hospitalist service (5) Hyperlipidemia: Qualifiers: Hyperlipidemia type: unspecified Qualified Code(s): E78.5 - Hyperlipidemia, unspecified Code(s): E78.5 - Hyperlipidemia, unspecified Status: Acute Assessment and Plan: Continue rosuvastatin (6) Hypertension: Qualifiers: Hypertension type: essential hypertension Qualified Code(s): I10 - Essential (primary) hypertension Code(s): I10 - Essential (primary) hypertension Status: Acute Assessment and Plan: Above goal. Tolerating increased lisinopril dose. Hesitate to push medications further as she has had orthostatic hypotension and falling in the recent past. Additional Plan Plan discussed with Dr. Titi Pratt 07/31/2019 Time Spent With Patient Time with patient: less than 15 minutes Subjective Date/time seen: 07/31/19 10:53 Interval history: Follow-up for: Chest pain, coronary artery disease, hypertension, hyperlipidemia, facial numbness Date of service: 07/31/2019 Subjective: Limited evaluation due to language barrier. Denied chest discomfort or shortness of breath. Still has some facial numbness. Review of Systems Review of Systems: ROS unobtainable: other (Limited due to language barrier) Constitutional: Constitutional: Reports fatigue Eyes: Eyes: Denies blurry vision ENT: Reports Normal hearing present, Denies lip swelling and Denies neck pain Cardiovascular: Cardiovascular: Denies chest pain and Denies dyspnea Respiratory: Respiratory: Denies dyspnea Gastrointestinal: Gastrointestinal: Denies abdominal pain and Denies bloating Genitourinary: Genitourinary: Denies hematuria Musculoskeletal: Musculoskeletal: Denies neck pain and Reports numbness Integumentary/Breasts: Skin/Breast: Denies dry skin and Denies unusual bruising Neurologic: Reports Normal hearing present, Denies confusion and Reports numbness Psychiatric: Psychiatric: Reports anxiety Hematologic/Lymphatic: Hematologic/Lymphatic: Denies easy bleeding Allergic/Immunologic: Allergic/Immunologic: Denies lip swelling Exam Const: General: comfortable and no acute distress; No confusion Orientation/consciousness: No confusion HENMT: General nose exam: Normal nares present and no epistaxis Eyes: Sclera: sclerae normal Neck: Neck: no JVD Resp: Auscultation: clear to auscultation bilaterally Cardio: Rate: regular rate Rhythm: regular rhythm GI: Auscultation: normal
--- NOTE | 2019-07-31 12:41 | PC.NURSE ---
Off floor to MRI at 1210.
[2019-07-31 13:55] LABS: Rapid Plasma Reagin Non-Reactive (NonReactive)
--- NOTE | 2019-07-31 17:17 | PM.DS ---
DS: Diagnosis Admitting Diagnosis Admitting Diagnosis: Other forms of angina pectoris Discharge Diagnosis (1) Facial numbness: Code(s): R20.0 - Anesthesia of skin Status: Acute (2) Chest pain: Qualifiers: Chest pain type: chest pain due to myocardial ischemia Ischemic chest pain type: stable angina pectoris Qualified Code(s): I20.8 - Other forms of angina pectoris Code(s): R07.9 - Chest pain, unspecified Status: Acute (3) Anxiety disorder: Qualifiers: Anxiety disorder type: generalized anxiety disorder Qualified Code(s): F41.1 - Generalized anxiety disorder Code(s): F41.9 - Anxiety disorder, unspecified Status: Acute (4) CAD (coronary artery disease): Qualifiers: Associated angina: with stable angina Coronary Disease-Associated Artery/Lesion type: [place] artery [place] vs. transplanted heart: [place] heart Qualified Code(s): I25.118 - Atherosclerotic heart disease of [place] coronary artery with other forms of angina pectoris Code(s): I25.10 - Atherosclerotic heart disease of [place] coronary artery without angina pectoris Status: Acute (5) Hypertension: Qualifiers: Hypertension type: essential hypertension Qualified Code(s): I10 - Essential (primary) hypertension Code(s): I10 - Essential (primary) hypertension Status: Acute (6) Hyperlipidemia: Qualifiers: Hyperlipidemia type: unspecified Qualified Code(s): E78.5 - Hyperlipidemia, unspecified Code(s): E78.5 - Hyperlipidemia, unspecified Status: Acute DS: Summary Hospital Course Reason for hospitalization: 74yo female here for chest pain. Please see H&P for details. Hospital Course: Patient was admitted to the IMU. Troponins negative x3. EKG showed no acute findings. Placed on telemetry but no significant dysrhythmias noted. Sodium was low 130 to otherwise electrolytes were within limits. LFTs within normal limits. B12, folate and TSH levels normal. Chest x-ray showed mild atelectasis in lower lung zones. No fever, cough or elevated white count to suggest pneumonia. Brain MRI showed no acute intracranial findings. Left internal carotid artery 50-69% stenosis with right less than 50%. We continued her home medications. Neurology and Cardiology consulted but no further testing was required. Ranexa added to her medication list. Patient no longer having chest pain. The lip/face numbness has almost resolved. Okay for discharge. Status at Discharge Functional status at discharge: independent ambulation Overall status at discharge: patient is back to baseline Time Spent with Patient Time attestation: Total time spent providing and/or coordinating discharge services:31 minutes Time spent: Greater than 30 minutes Specific discharge activities: Discussed with Neurology and Cardiology. Message left with family. Exam Narrative: Exam Narrative: Gen - NARD sitting at the side of bed Chest - CTA bilaterally, nml RR CV - RRR S1/S2. Tele showing sinus arrhythmia at times Abd - Soft, NT/ND, Positive BS Ext - No pedal edema Psych - Nml mood and affect. Skin - Warm and dry DS: Data Data Completed and Pending Labs on day of discharge: Labs from last 24 hours 07/31/19 07/31/19 07/31/19 04:26 04:26 04:26 WBC RBC Hgb Hct MCV MCH MCHC RDW Plt Count MPV Immature Gran % (Auto) Neut % (Auto) Lymph % (Auto) [place] % (Auto) Eos % (Auto) Baso % (Auto) Lymph # (Auto) [place] # (Auto) Eos # (Auto) Baso # (Auto) Abs Immat Gran (auto) Absolute Neuts (auto) Absolute Nucleated RBC Nucleated RBC % Sodium 132 L Potassium 3.8 Chloride 95 L Carbon Dioxide 24 BUN 10 Creatinine 0.60 L Estim Creat Clear Calc 71 Estimated GFR > 60 Glucose 128 H Calcium 9.5 Vitamin B12 714.0 Folate > 20.0 H TSH (Reflex) 1.650 RPR No
--- NOTE | 2019-07-31 17:30 | CONS_ITS ---
DATE OF CONSULTATION: HISTORY OF PRESENT ILLNESS: A 74-year-old right-handed female has been admitted to [facility] with complaints of: 1. Coronary artery disease. 2. Dementia. 3. Left facial numbness. The patient had been hospitalized here on June 30, 2018, for complaint of chest pain and she underwent left heart catheterization with documentation of coronary artery disease requiring BRYAN in the LAD, a BRYAN in the proximal circumflex, and a BRYAN in the OM circumflex branch. There was a small distal circumflex branch of 90% stenosis that was too small for the PCI. She returned to the hospital on July 06, with the complaint of chest pain and found to have elevated troponins. It was related to small-vessel disease. She returned to the hospital on July 10, for syncopal and found to have elevated troponins again. The syncope was attributed to low blood pressure for medications, those were adjusted. She was discharged on July 13, but she has been having difficulties with confusion, taking too many pills at times. The patient lives with her daughter, son-in-law, and 4 grandchildren. She is home alone at times and get disoriented. Recently, she was diagnosed with bladder infection about 5 days ago and was moved to [place] 2 days ago. Yesterday, she was playing [employer], visiting with her family. Later on last evening, she developed chest pain, squeezing in nature with numbness on the left side of face, perioral region, left side of the neck, and left chest. No weakness in arms and legs. On initial eval in the emergency room, vital signs were stable except blood pressure of 147/104. Troponins were negative. She carries a diagnosis of coronary artery disease now with hyperlipidemia, hypertension, and anxiety disorder. In the past, has had the bladder suspension procedure, cardiac cath, hysterectomy, and heart artery stenting. Neuro consultation has been obtained because of the ongoing concern of dementia and recently she has moved to [place] though she has been in and out of [facility] and the country here with the family. PHYSICAL EXAMINATION: VITAL SIGNS: Evaluation up until now has revealed her to be afebrile with blood pressure 146/75, pulse 71, respirations 16, blood pressure 156/89, pulse ox 97%. GENERAL: On examination, she is awake, alert, cooperative, in no obvious acute distress, sitting at the bedside, trying to follow the verbal commands by the physician by gestures. HEENT: Head normocephalic with no cranial bruit. Ear, nose, throat exam normal. NECK: Supple. HEART: Regular. LUNGS: Clear. ABDOMEN: Soft. NEUROLOGICAL: She is awake, alert. Speech, German speaking. Understands the situation by gesture. Pupils round, regular. Gutierrez of vision full. Extraocular movements full. Face symmetrical. Tongue midline. Motor examination revealed no focal motor deficit. Reflexes symmetrical. Plantars are downgoing. IMPRESSION: Considering the language barrier and considering the patient's family thing that she has underlying dementia, general medical condition and the cardiological condition is being handled, I will simply check the B12, folate levels, and also the EEG. She has had the CT scan done on July 10, which was negative and once I have the personal contact with the family, further recommendations will be made accordingly. GERDA JOSEPH M.D. MARKETING DATABASE ANALYST MARKETING DATABASE ANALYST D I MT: Murali
== END 2019-07-31 20:35 ==
LOC: ANHED 05:43 → ANHIMU 06:50
PROVIDERS: Admitting Provider Internal Medicine; Emergency Provider Emergency Medicine; PCP Family Medicine; Visit Provider Internal Medicine
DX: I25.118 Atherosclerotic heart disease of native coronary artery with other forms of angina pectoris (principal); R20.0 Anesthesia of skin; F41.1 Generalized anxiety disorder; I10 Essential (primary) hypertension; E78.5 Hyperlipidemia, unspecified; R39.9 Unspecified symptoms and signs involving the genitourinary system; I65.22 Occlusion and stenosis of left carotid artery; F03.90 Unspecified dementia, unspecified severity, without behavioral disturbance, psychotic disturbance, mood disturbance, and anxiety; Z79.82 Long term (current) use of aspirin; Z79.899 Other long term (current) drug therapy; Z95.5 Presence of coronary angioplasty implant and graft
CPT/HCPCS: 36415; 70553; 71045; 80048; 80053; 82607; 82746; 83690; 84443; 84484; 85025; 85610; 85730; 86592; 93005; 93306; 93880; 96374; 99285; A9270; A9577; G0378

== ENCOUNTER 2019-08-02 02:46 | Inpatient (IN) | payer OTHER, SELFPAY ==
[2019-08-02] VITALS (16 sets, daily range): BP systolic 113–186; BP diastolic 73–106; PULSE 61–92; RESP 12–18; TEMP 36.3–36.6; O2SAT 96–100; BMI 25.0
--- NOTE | ~2019-08-02 | XR_ITS ---
EXAMINATION: XR chest 2V DATE: 08/02/2019 03:44 INDICATION: Chest pain TECHNIQUE: AP and lateral views of the chest are obtained. COMPARISON: 07/30/2019 FINDINGS: There is elevation of the right hemidiaphragm. Mild atelectasis is noted in the right lung base. There is no pleural effusion or pneumothorax. The cardiomediastinal silhouette is normal. There is mild thoracic spondylosis. IMPRESSION: 1. Mild atelectasis of the right lung base. Reviewed, dictated and finalized at location A. R BLENDER
--- NOTE | 2019-08-02 03:04 | ECG_ITS ---
Measurements Intervals [place] Rate: 66 P: -7 UT: 156 QRS: -7 QRSD: 84 T: 28 QT: 386 QTc: 404 Interpretive Statements SINUS RHYTHM VENTRICULAR PREMATURE COMPLEX DELAYED PRECORDIAL R/S TRANSITION VOLTAGE CRITERIA FOR LVH BORDERLINE ECG Electronically Signed On 08-02-2019 7:13:29 SEED SERVICE ADVISOR by Je Andujar D.O.
[2019-08-02] MEDS: MORPHINE SULFATE 2 MG/ML INJ IV PUSH (03:30)
--- NOTE | 2019-08-02 03:45 | PC.NURSE ---
Patient's daughter states she is unaware of which medications are for what diagnoses and when or how to give them. EPD was in the room and informed patient's daughter that the prescription is on the bottle of the medications as well as it is on the patient's medication list on how to give them. Patient's daughter states she has been unable to give one of the medications due to the patient's insurance not covering the medication. This nurse stated they may have to contact the pharmacy or the patient's insurance to see what medications are covered exactly.
[2019-08-02 04:03] LABS: Basophils Percent Auto 0.6 % (0.2-1.2); Eosinophils Absolute Auto 0.2 K/mm3 (0-0.3); Eosinophils Percent Auto 2.2 % (0-4.4); Hematocrit 38.7 % (37.0-47.0); Immature Granulocyte Absolute 0.03 K/mm3 (0.00-0.031); Immature Granulocyte Percent A 0.4 % (0-0.5); Lymphocytes Absolute Auto 1.77 K/mm3 (0.9-3.2); Mean Corpuscular HGB Conc 33.6 g/dl (32-36); Mean Corpuscular Volume 89.2 fl (80-100); Mean Platelet Volume 10.4 fl (7.4-10.4); Monocytes Absolute Auto 0.6 K/mm3 (0.1-0.6); Monocytes Percent Auto 9.2 % (2.6-8.5); Neutrophils Absolute Auto 4.2 K/mm3 (1.3-6.7); Neutrophils Percent Auto 61.6 % (45.5-73.1); Platelet Count Result 280 k/mm3 (150-375); Red Blood Count 4.34 M/mm3 (4.2-5.4); Red Cell Distribution Width 12.7 % (11.5-14.5); White Blood Count 6.8 K/mm3 (4.5-10.0)
[2019-08-02 04:12] LABS: Prothrombin Time 12.4 Seconds (11.1-14.7)
[2019-08-02 04:13] LABS: Partial Thromboplastin Time 26.9 SECONDS (22.3-36.8)
--- NOTE | 2019-08-02 04:14 | PC.NURSE ---
This nurse was called into patient room by patient's family. Patient's daughter states patient has decreased loc and her BP has dropped and requested the name of the medication that was given. This nurse informed patient's daughter that the patient is awake and looking at this nurse and another RN in the room and moving her arms, and that the patient's BP had dropped, which can be a side effect of the morphine that was given. This nurse ensured the patient's family that the patient's VS are visible at the physician desk and nurses station and that I will speak with the physician. This nurse spoke with the EDP and the nitro paste was removed from the patient's chest and that the patient's BP will be monitored closely. Patient's BP went from 90/63 to 113/75. EDP aware and informed. Patient resting comfortably on stretcher.
[2019-08-02 04:15] LABS: Blood Urea Nitrogen 11 mg/dL (7-17); Calcium 9.7 mg/dL (8.4-10.2); Carbon Dioxide 26 mmol/L (22-30); Chloride 96 mmol/L (98-107); Estimated CRCL calculation 63 ml/min; Estimated Glomerular Filt Rate > 60; Glucose 145 mg/dL (65-105); Sodium 132 mmol/L (137-145)
[2019-08-02 04:27] LABS: Troponin I < 0.012 ng/mL (0.000-0.034)
--- NOTE | 2019-08-02 04:51 | ED.CHESTPAIN ---
HPI - Chest Pain General Chief Complaint: Chest Pain Stated Complaint: chest pain Time Seen by Provider: 08/02/19 02:53 History of Present Illness HPI narrative: Patient is a 74-year-old female who presents the ER with chest pain. Left-sided and feels like previous MO. No radiation. Associated with elevated blood pressure in the 180s. Patient recently had cardiac stenting procedure performed. Was started Ranexa a couple days ago before discharge. Unfortunately insurance would not cover the medication and she has not been taking it. No n/v/soa/diaphoresis. Family interpreting for the patient. Related Data Home Medications Medication Instructions Recorded Confirmed lorazepam 1 mg PO DAILY PRN 07/10/19 07/30/19 Allergies Allergy/AdvReac Type Severity Reaction Status Date / Time No Known Allergies Allergy Verified 07/10/19 11:15 Review of Systems Review of Systems: All systems reviewed & are unremarkable except as noted in HPI and below Constitutional: Constitutional: Denies chills, Denies fever(s) and Denies weakness Cardiovascular: Cardiovascular: Reports chest pain, Denies rapid heart rate and Denies radiating jaw, neck or arm pain Respiratory: Respiratory: Denies chest congestion, Denies cough and Denies dyspnea Gastrointestinal: Gastrointestinal: Denies abdominal pain, Denies nausea and Denies vomiting PMFSH Past Medical History Medical History Anxiety disorder CAD (coronary artery disease) BRYAN in LAD, Circ and OM branch on 06/30/19; small vessel disease Hyperlipidemia Hypertension Surgical History Surgical History History of bladder suspension procedure History of cardiac cath History of hysterectomy Hx of heart artery stent x3 06/30/19 Family History Family History (Updated 07/30/19 @ 18:18 by Brooklyn Meza RN) Daughter Cerebrovascular accident Other Unknown family medical history Social History Social History Social History: The patient is from the [place] and has been frequently returning their to stay with family. Here, she was living with her daughter and her family for much of the year but moved to [place] 2 days ago. 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 She designates her daughter, Kayleigh Meneses, as her surrogate decision maker and she is a full code. She denies alcohol, tobacco, and drug abuse. Smoking status: Never smoker Alcohol intake: never Substance use: never Substance use type: does not use Gender identity (if verbalized by the patient): Female Spiritual care concerns: No Agree to blood products: Yes Exam Narrative: Exam Narrative: GENERAL: Well-appearing, well-nourished, and in no acute distress. HEAD: Normocephalic, atraumatic. ENT: Mucous membranes moist. NECK: Supple. CHEST: Clear to auscultation. No respiratory distress. No reproducible tenderness to chest wall. HEART: Regular rate and rhythm. Normal peripheral pulses. ABDOMEN: Soft, nontender, nondistended. EXTREMITIES: Normal range of motion. No edema. SKIN: Warm, dry, no rash. NEURO: Awake and alert, clear speech. Course Course Emergency Course: Discussed case with hospitalist service. Admit for observation, will have cardiology consulted as well as social work to figure out medication affordability. Patient is also had some elevated pressures upon arrival. This could be potentially causing turbulent flow and exacerbating her chest discomfort. Vital Signs Vital signs: Vital Signs Temperature 97.4 F L 08/02/19 02:44 Pulse Rate 67 08/02/19 02:44 Respiratory Rate 16 08/02/19 02:44 Blood Pressure 186/106 H 08/02/19 02:44 Pulse Oximetry 98 08/02/19 02:44 Temperature 97.4 F L 08/02/19 02:44 Pulse Rate 65 08/02/19 04:23 Respiratory Rate 12 08/02/19 04:23 Blood Pressure 113/75
--- NOTE | 2019-08-02 06:57 | ADMGEN ---
This patient, Jayshree Duron, was admitted to IMU Room 210-01. Patient/family oriented to hospital policies and general routines including ID bracelet, bed and alarms, visiting hours, pain management, procedures, bathroom and other care routines, personal items, smoking policy, room service/diet, and visiting hours. Valuables list has been completed. Information on how to activate the Rapid Response Team has been discussed. Patient/Family are encouraged to report perceived risks to care and to ask questions if they do not understand what they are told or what they should do.
[2019-08-02 08:52] LABS: Troponin I < 0.012 ng/mL (0.000-0.034)
--- NOTE | 2019-08-02 11:34 | PM.CNCAR ---
Assessment and Plan Additional Plan 74-year-old lady with history of coronary disease recent percutaneous revascularization as detailed above. Since then she has had numerous admissions with symptomatology without any objective evidence of acute coronary syndrome. We are yet again in the same position as of admission last evening. The patient was brought back to the cardiac carpenter/labor during the 1st admission to reassess her status angiographically with recurrent symptoms and there were no new problems identified. It is not necessary to consider abrupt stent thrombosis in the setting of normal electrocardiogram and normal enzymes it is also historically too soon for intimal hyperplasia and standard restenoses to be occurring. It is obvious therefore that the symptoms are either completely noncardiac or possibly related to the very small vessel disease that I am describing above in my note. In either case there is no strong reason to think about bringing slightly back to the cardiac catheterization lab at this time in my opinion. In addition during these multiple frequent ER visits if there is no evidence of acute coronary syndrome I would argue that it is probably not necessary to keep readmitting her to the hospital. It seems obvious to me that there is a large degree of anxiety overlay both on the part of the patient and the family. A fair amount of time was spent trying to reassure them through the vice president risk management that in contrast to her initial admission over a month ago on all the subsequent admissions we do not see any evidence of acute myocardial necrosis. I would recommend continuing her on the medications that she was discharged on 48 hours ago and reassuring that she has a supply of sublingual nitroglycerin tablets to use if she has symptoms and caution is taken to in structure as to the proper use of these. History of Present Illness History of Present Illness Consult date/time: Date of service: 08/02/19 11:34 Consult reason: chest pain Reason For Visit: chest pain Narrative: This is a 74-year-old female who is well known to our practice because of at least 4 5 recent admissions for the last month with episodes of chest pain. The patient is resting comfortably in her room as I entered the room to see her. She speaks no Camb[place]ian nor does her son who was in the room and so the history was obtained through a vice president risk management. The patient was in her usual state of health when at about 1:00 a.m. this morning she noticed the onset of chest pain that was initially in the right and left lateral chest wall area as an after a time was just on the right side. The discomfort was mild to moderate persistent not associated with any shortness of breath diaphoresis or air hunger. The patient has had a known history of coronary disease and interventions as detailed below and becomes very concerned when the symptom occurs she also notices that her blood pressure is very high they have a home blood pressure monitoring device and this also creates additional concern and for these reasons she came back to the hospital to be evaluated. This patient was found to have coronary disease just over a month ago when she presented here with symptoms of chest pain and had evidence of an acute coronary syndrome with troponin levels being elevated and modest ischemic ST segment abnormalities. She was brought to the cardiac carpenter/labor at that time and found to have heavily calcified coronary arteries with severe 2 vessel disease. She had high-grade stenosis in the OM circumflex as well as in the proximal circumflex and proximal LAD. All of these lesions were addressed with angiographic success using Orsiro drug-eluting stents. There was some distal disease in the OM circumflex distal to the stented segment which was high-grade but in very small subbranches of this vessel which in my opinion was not amenable to further PCI. The patient had some recurrent episodes of chest pain during t
[2019-08-02 12:17] LABS: Troponin I < 0.012 ng/mL (0.000-0.034)
--- NOTE | 2019-08-02 17:39 | PM.IMHP ---
H&P: HPI History of Present Illness Chief complaint: chest pain Narrative: Jayshree Duron is a 74 year old female admitted chest pain similar to before when she had DE. Pt speaks [place], i spoke to her son in law, who she lives with. He says that she is very good at taking all her medications, but notices that her bP shots up in the night time. Son in law states this is her 5 th admission to the hospital in past 4 weeks. From previous admission notes - patient was hospitalized here in June 30 for chest pain. She underwent left heart catheterization which showed coronary disease requiring a BRYAN in the LAD, a BRYAN in the proximal circumflex and a BRYAN in the OM circumflex branch. There was a small distal circumflex branch of 90% stenosis that was too small for PCI. Patient returned to the hospital on July 06 for complaints of chest pain and found to have elevated troponins. It was felt related to small-vessel disease. Patient return to the emergency room on July 10 for syncope and found to have elevated troponins again. Lindsey the syncope related to low blood pressure from her mediations. These were adjusted. Patient discharged home on July 13. Since being at home patient has been having difficulty with confusion. She has been taking too many pills at times. Patient was moved to skilled nursing 2 days ago. Patient was readmitted on 07/30/2019 with chest pain, patient also has been feeling shaky and has significant anxiety issues. possible confusion issues effecting her compliance to medications. At that time patient was admitted to the IMU. Troponins negative x3. EKG showed no acute findings. Placed on telemetry but no significant dysrhythmias noted. Chest x-ray showed mild atelectasis in lower lung zones. Brain MRI showed no acute intracranial findings. Left internal carotid artery 50-69% stenosis with right less than 50%. Bp was noticed to be high, chest pain seemed related to anxiety than CAD. Pt is admitted again 08/02/2019 with similar compliants of chest pain and high BPs and wants something done. Review of Systems Review of Systems: All systems reviewed & are unremarkable except as noted in HPI and below Cardiovascular: Cardiovascular: Denies chest pain, Denies diaphoresis and Denies dyspnea on exertion Gastrointestinal: Gastrointestinal: Denies abdominal pain Musculoskeletal: Musculoskeletal: Denies no additional musculoskeletal complaints Psychiatric: Psychiatric: Reports anxiety and Denies confusion [facility] Past Medical History Medical History Anxiety disorder CAD (coronary artery disease) BRYAN in LAD, Circ and OM branch on 06/30/19; small vessel disease Hyperlipidemia Hypertension Surgical History Surgical History History of bladder suspension procedure History of cardiac cath History of hysterectomy Hx of heart artery stent x3 06/30/19 Family History Family History Daughter Cerebrovascular accident Other Unknown family medical history Social History Social History Social History: The patient is from the [place] and has been frequently returning their to stay with family. Here, she was living with her daughter and her family for much of the year but moved to [place] 2 days ago. 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 She designates her daughter, Kayleigh Meneses, as her surrogate decision maker and she is a full code. She denies alcohol, tobacco, and drug abuse. Smoking status: Never smoker Alcohol intake: never Substance use: never Substance use type: does not use Gender identity (if verbalized by the patient): Female Spiritual care concerns: No Agree to blood products: Yes Meds Home Medications and Allergies Home Medication
[2019-08-02] MEDS: carvediloL 12.5 MG TABLET PO (20:26)
[2019-08-02] MEDS: LORAZEPAM 0.5 MG TABLET PO (20:26)
[2019-08-02] MEDS: RANOLAZINE 500 MG TAB.ER.12H PO (20:26)
--- NOTE | 2019-08-02 22:38 | PC.NURSE ---
Daughter Kayleigh LAGUNA would like Cardiology to speak with her Lance [phone] regarding her mothers care.
[2019-08-03] VITALS (14 sets, daily range): BP systolic 152–158; BP diastolic 67–87; PULSE 62–95; RESP 16–18; TEMP 35.9–36.7; O2SAT 97–99
[2019-08-03] MEDS: RANOLAZINE 500 MG TAB.ER.12H PO ×2 (08:23→20:14)
[2019-08-03] MEDS: LORAZEPAM 0.5 MG TABLET PO ×2 (08:24→18:24)
[2019-08-03] MEDS: CLOPIDOGREL BISULFATE 75 MG TABLET PO (08:24)
[2019-08-03] MEDS: lisinopriL 10 MG TABLET PO (08:24)
[2019-08-03] MEDS: ASPIRIN 81 MG CHEWABLE TABLET PO (08:24)
[2019-08-03] MEDS: ROSUVASTATIN 10 MG TABLET PO (08:24)
[2019-08-03] MEDS: carvediloL 12.5 MG TABLET PO ×2 (08:25→20:14)
--- NOTE | 2019-08-03 12:40 | PM.PNCARD ---
Progress Note: A&P Assessment and Plan (1) Chest pain: Qualifiers: Chest pain type: precordial pain Qualified Code(s): R07.2 - Precordial pain Code(s): R07.9 - Chest pain, unspecified Status: Resolved Assessment and Plan: Denies chest discomfort Continue aspirin, clopidogrel, carvedilol, rosuvastatin and Ranexa. Preauthorization done. Peer to peer review done. Ranexa has been approved by her insurance company. Case management has check the dangelo. Zero dollars. (2) CAD (coronary artery disease): Qualifiers: Coronary Disease-Associated Artery/Lesion type: [place] artery [place] vs. transplanted heart: [place] heart Associated angina: with stable angina Qualified Code(s): I25.118 - Atherosclerotic heart disease of [place] coronary artery with other forms of angina pectoris Code(s): I25.10 - Atherosclerotic heart disease of [place] coronary artery without angina pectoris Status: Acute Assessment and Plan: Status post stenting to the proximal circumflex, obtuse marginal and LAD 06/30/2019. This is her 5th admission since her intervention. Medications have been adjusted several times to try to avoid hypotension as well as better control her blood pressure. Medications as above. She has documented hypotension when she received nitroglycerin during her initial stay as well as a trial of isosorbide on 07/08/2019. Do not plan on sending her home with nitroglycerin to avoid any hypotensive/syncopal episodes. (3) Hyperlipidemia: Qualifiers: Hyperlipidemia type: unspecified Qualified Code(s): E78.5 - Hyperlipidemia, unspecified Code(s): E78.5 - Hyperlipidemia, unspecified Status: Chronic Assessment and Plan: Continue rosuvastatin (4) Hypertension: Qualifiers: Hypertension type: essential hypertension Qualified Code(s): I10 - Essential (primary) hypertension Code(s): I10 - Essential (primary) hypertension Status: Chronic Assessment and Plan: Blood pressure over the last 24 hours: 148/80, 152/94, 179/80, 154/86, 46275, 158/71, 155/80. Continue carvedilol 12.5 mg q.12 hours. Lisinopril will be changed to q.12 hours dosing to better cover blood pressures during the night. (dose remains 10 mg daily). Metanephrines, fraction/free ordered by Dr Newman were received in the lab. Results are pending. Will continue to monitor her chart for results. Additional Plan She certainly can continue acetaminophen as needed. Lorazepam 0.5 mg b.i.d. seems also to be helping. OK to discharge from cardiac standpoint See discharge instructions for follow-up Plan discussed with Dr Newman [id number] 08/03/2019 Time Spent With Patient Time with patient: 15 - 25 minutes Subjective Date/time seen: 08/03/19 12:40 Interval history: Follow-up for: Chest pain, known coronary artery disease status post intervention 06/30/2019, hypertension, hyperlipidemia, anxiety Date of service: 08/03/2019 Subjective: Assessment done with the assistance of portfolio assistant betty on son's phone. No chest discomfort, shortness of breath, lightheadedness or palpitations. Review of Systems Constitutional: Constitutional: Denies anorexia and Denies fatigue Eyes: Eyes: Reports no additional eye complaints Cardiovascular: Cardiovascular: Denies chest pain, Denies chest pain with activity, Denies syncope, Denies leg edema, Denies lightheadedness, Denies dyspnea and Denies dyspnea on exertion Respiratory: Respiratory: Denies dyspnea and Denies dyspnea on exertion Gastrointestinal: Gastrointestinal: Denies abdominal pain, Denies nausea and Denies vomiting Genitourinary: Genitourinary: Denies hematuria Musculoskeletal: Musculoskeletal: Denies tingling Integumentary/Breasts: Skin/Breast: Reports dry skin Psychiatric: Psychiatric: Reports anxiety Hematologic/Lymphatic: Hemat
--- NOTE | 2019-08-03 16:42 | PM.DS ---
DS: Diagnosis Admitting Diagnosis Admitting Diagnosis: Precordial pain Discharge Diagnosis (1) Chest pain: Qualifiers: Chest pain type: precordial pain Qualified Code(s): R07.2 - Precordial pain Code(s): R07.9 - Chest pain, unspecified Status: Resolved Assessment and Plan: Pt admitted to IMU for observation. pt is on telemetry, troponin are negative, pt seen by cardiology. Chest pain appears anxiety related not cardiac, Pt anxiety medications has been dosed twice daily. Pt also discharged with pepcid for GERD symptoms. Long discussion with son by the bedside about compliance to medications. Pt can monitor BP at home if Bp goes to high over 160/ 100 can call her PCP office or call Cardiac clinic rather than coming into ER. (2) Anxiety disorder: Qualifiers: Anxiety disorder type: generalized anxiety disorder Qualified Code(s): F41.1 - Generalized anxiety disorder Code(s): F41.9 - Anxiety disorder, unspecified Status: Acute Assessment and Plan: Pt is on lorazepam once a day will divide the dose into two doses per day. Pt may need some counselling after her [place] experience for posttraumatic stress. Adviced some relaxation at home. (3) CAD (coronary artery disease): Qualifiers: Coronary Disease-Associated Artery/Lesion type: [place] artery [place] vs. transplanted heart: [place] heart Associated angina: with stable angina Qualified Code(s): I25.118 - Atherosclerotic heart disease of [place] coronary artery with other forms of angina pectoris Code(s): I25.10 - Atherosclerotic heart disease of [place] coronary artery without angina pectoris Status: Acute Assessment and Plan: Pt seen by cardiology no need for any further intervention. Ranolazine has been approved now. (4) Hyperlipidemia: Qualifiers: Hyperlipidemia type: unspecified Qualified Code(s): E78.5 - Hyperlipidemia, unspecified Code(s): E78.5 - Hyperlipidemia, unspecified Status: Chronic Assessment and Plan: Continue pts home medications. (5) Hypertension: Qualifiers: Hypertension type: essential hypertension Qualified Code(s): I10 - Essential (primary) hypertension Code(s): I10 - Essential (primary) hypertension Status: Chronic Assessment and Plan: Continue pts home medications I will discuss with Dr Walls about dosing lisinopril twice daily to optimise her BPs DS: Summary Time Spent with Patient Time attestation: Total time spent providing and/or coordinating discharge services:38 minutes on day of dischrage Exam Const: General: well developed; No confusion Nutritional Appearance: well nourished Orientation/consciousness: No confusion HENMT: Head: normocephalic Eyes: General: appearance normal, both eyes and all related structures Pupils: Equal, round and reactive pupils present Neck: Neck: supple Chest: Chest palpation & inspection: normal inspection of the chest Resp: Effort & Inspection: normal respiratory effort Auscultation: clear to auscultation bilaterally Cardio: Jugular venous distension: no JVD Rhythm: regular rhythm Heart sounds: S1 normal heart sound present and S2 normal heart sound present GI: Inspection: normal to inspection Auscultation: normal bowel sounds : General: Yes no CVA tenderness Back/Spine/Pelvis: Back: no CVA tenderness Skin: General skin exam: normal color and dry skin Neuro: General: No confusion Cranial nerves: Yes CN's II-XII intact bilaterally and Yes Equal, round and reactive pupils present Cognition (Neuro): normal cognition Speech: normal speech Motor exam (neuro): 5/5 motor strength present throughout Extrem: General: normal to inspection Psych: Appearance: grossly normal Mental Status: mental status grossly normal DS: Data Data Completed and Pending Labs on day of discharge: Labs from last 24 hours 08/03/19 06:22 Plasma Free Metan
--- NOTE | 2019-08-03 17:57 | PC.NURSE ---
Patient was up for discharge and instructions reviewed via traffic engineer with patient and son. The son stated that his sister would be here shortly and would like to discuss discharge instructions with them. Upon arrival of daughter and son-in-law they voiced displeasure with the patient being discharged as this is her 5th recurrent admission for the same thing in the past month. They do not want her to go home and wanted to speak with a it solutions sales consultant regarding her care and treatment which they did not receive today. I called Dr. Newman and updated her on this, she stated she was okay with the patient staying additional nights to keep the family comfortable. Dr. Newman was okay with patient being off telemetry and downgraded as well. Family updated that Dr. Newman would keep her for additional observation. Family asked when they could speak to a it solutions sales consultant and that they had requested to speak to one multiple times but had not been called during the day. Upon further discussion it was learned that both the daughter and son-in-law had spoken to Dr. Newman last night. Regardless the family is displeased and frustrated with the recurrent admissions and stated they want a it solutions sales consultant to call them tomorrow to discuss the care of their family member. I updated the family on the changes that have been adjusted with her medications including rationale for adjustments, the renexa being approved by insurance, and concerns with not upping blood pressure medication to aggressively as she has previously become profoundly hypotensive with other blood pressure medications.
[2019-08-04] VITALS (19 sets, daily range): BP systolic 126–157; BP diastolic 72–88; PULSE 62–106; RESP 16–22; TEMP 35.9–36.6; O2SAT 96–98
[2019-08-04] MEDS: carvediloL 12.5 MG TABLET PO ×2 (09:23→22:35)
[2019-08-04] MEDS: CLOPIDOGREL BISULFATE 75 MG TABLET PO (09:23)
[2019-08-04] MEDS: RANOLAZINE 500 MG TAB.ER.12H PO ×2 (09:23→22:37)
[2019-08-04] MEDS: ROSUVASTATIN 10 MG TABLET PO (09:24)
[2019-08-04] MEDS: lisinopriL 10 MG TABLET PO (09:24)
[2019-08-04] MEDS: ASPIRIN 81 MG CHEWABLE TABLET PO (09:24)
[2019-08-04] MEDS: LORAZEPAM 0.5 MG TABLET PO ×2 (09:36→16:17)
--- NOTE | 2019-08-04 11:09 | PM.PNCARD ---
Progress Note: A&P Assessment and Plan (1) Chest pain: Qualifiers: Chest pain type: precordial pain Qualified Code(s): R07.2 - Precordial pain Code(s): R07.9 - Chest pain, unspecified Status: Resolved Assessment and Plan: Denies chest discomfort that sounds anginal in nature. She reports a sharp quick discomfort on the right side or the left side of her chest that occurs off an on. She was pain-free at the time of our interview. Continue aspirin, clopidogrel, carvedilol, rosuvastatin and Ranexa. Preauthorization for Ranexa has been done. Peer to peer due to initial denial. Ranexa was approved. Cost is $0. She has received as of this morning 4 doses of Ranexa for this admission. She received a dose on 08/02 at 20:26 , at 088:23 and 20:14, this morning's dose was at 09:23 . She also received doses on the 07/30 at 1935 , at 1034 and 2020. Her blood pressure and heart rate have been stable. She denies any chest discomfort or lightheadedness. (2) CAD (coronary artery disease): Qualifiers: Associated angina: with stable angina Coronary Disease-Associated Artery/Lesion type: [place] artery [place] vs. transplanted heart: [place] heart Qualified Code(s): I25.118 - Atherosclerotic heart disease of [place] coronary artery with other forms of angina pectoris Code(s): I25.10 - Atherosclerotic heart disease of [place] coronary artery without angina pectoris Status: Acute Assessment and Plan: Status post stenting to the proximal circumflex, obtuse marginal and LAD 06/30/2019. This is her 5th admission since her intervention. Medications have been adjusted several times to try to avoid hypotension as well as better control her blood pressure. Medications as above. She has documented hypotension when she received nitroglycerin during her initial stay as well as a trial of isosorbide on 07/08/2019. Do not plan on sending her home with nitroglycerin to avoid any hypotensive/syncopal episodes. No anginal symptoms as above (3) Hyperlipidemia: Qualifiers: Hyperlipidemia type: unspecified Qualified Code(s): E78.5 - Hyperlipidemia, unspecified Code(s): E78.5 - Hyperlipidemia, unspecified Status: Chronic Assessment and Plan: Continue rosuvastatin (4) Hypertension: Qualifiers: Hypertension type: essential hypertension Qualified Code(s): I10 - Essential (primary) hypertension Code(s): I10 - Essential (primary) hypertension Status: Chronic Assessment and Plan: Blood pressure over the last 24 hours: 155/80, 152/78, 158/87, 158/67, 139/76, 126/79, 139/72, and 157/88. Continue carvedilol 12.5 mg q.12 hours. Lisinopril will be changed to q.12 hours dosing to better cover blood pressures during the night. (dose remains 10 mg daily) on discharge Metanephrines, fraction/free ordered by Dr Newman were received in the lab. Results are still pending. Will continue to monitor her chart for results. Additional Plan She certainly can continue acetaminophen as needed. Lorazepam 0.5 mg b.i.d. seems also to be helping. With the assistance of the [employer] Video Steam Roller Operator she nor her son had any further questions or concerns. She was instructed that she is to be ambulating in the halls today. She may transfer to [facility] with telemetry if she is going to be monitored for another day. No changes in her discharge medications from cardiac standpoint no changes in her appointment time for [facility]. Time Spent With Patient Time with patient: 15 - 25 minutes Subjective Date/time seen: 08/04/19 11:09 Interval history: Follow-up for: Chest pain, known coronary artery disease status post intervention 06/30/2019, hypertension, hyperlipidemia, anxiety Date of service: 08/04/2019 Subjective: Assessment done with the assistance of Alphonse
--- NOTE | 2019-08-04 15:12 | PM.IMPN ---
Progress Note: A&P Assessment and Plan (1) Chest pain: Qualifiers: Chest pain type: precordial pain Qualified Code(s): R07.2 - Precordial pain Code(s): R07.9 - Chest pain, unspecified Status: Resolved Assessment and Plan: Pt admitted to IMU for observation. pt is on telemetry, troponin are negative, pt seen by cardiology. Chest pain appears anxiety related not cardiac, Pt anxiety medications has been dosed twice daily. Pt to start on ranexa and BID dosing of lisinopril. Continue to watch her bps in the hospital (2) Anxiety disorder: Qualifiers: Anxiety disorder type: generalized anxiety disorder Qualified Code(s): F41.1 - Generalized anxiety disorder Code(s): F41.9 - Anxiety disorder, unspecified Status: Acute Assessment and Plan: Pt is on lorazepam once a day will divide the dose into two doses per day. Pt may need some counselling after her [place] experience for posttraumatic stress. Adviced some relaxation at home. (3) CAD (coronary artery disease): Qualifiers: Coronary Disease-Associated Artery/Lesion type: [place] artery [place] vs. transplanted heart: [place] heart Associated angina: with stable angina Qualified Code(s): I25.118 - Atherosclerotic heart disease of [place] coronary artery with other forms of angina pectoris Code(s): I25.10 - Atherosclerotic heart disease of [place] coronary artery without angina pectoris Status: Acute Assessment and Plan: Pt seen by cardiology no need for any further intervention. Ranolazine has been approved now. (4) Hyperlipidemia: Qualifiers: Hyperlipidemia type: unspecified Qualified Code(s): E78.5 - Hyperlipidemia, unspecified Code(s): E78.5 - Hyperlipidemia, unspecified Status: Chronic Assessment and Plan: Continue pts home medications. (5) Hypertension: Qualifiers: Hypertension type: essential hypertension Qualified Code(s): I10 - Essential (primary) hypertension Code(s): I10 - Essential (primary) hypertension Status: Chronic Assessment and Plan: Continue pts home medications I will discuss with Dr Walls about dosing lisinopril twice daily to optimise her BPs Subjective Date/time seen: 08/03/19 15:12 Interval history: Pt admitted to IMU for observation. pt is on telemetry, troponin are negative, pt seen by cardiology. Chest pain appears anxiety related not cardiac, pt having problems with high bps at home, pt to start ranexa in hospital ad start lisinopril BID dosing, pt to be kept on telemtry for observation of heart rate and any BP elevation Review of Systems Review of Systems: All systems reviewed & are unremarkable except as noted in HPI and below Cardiovascular: Cardiovascular: Denies chest pain, Denies diaphoresis and Denies dyspnea on exertion Respiratory: Respiratory: Denies dyspnea on exertion Gastrointestinal: Gastrointestinal: Denies abdominal pain Musculoskeletal: Musculoskeletal: Denies no additional musculoskeletal complaints Neurologic: Denies confusion Psychiatric: Psychiatric: Reports anxiety and Denies confusion Exam Const: General: well developed; No confusion Nutritional Appearance: well nourished Orientation/consciousness: No confusion HENMT: Head: normocephalic Eyes: General: appearance normal, both eyes and all related structures Pupils: Equal, round and reactive pupils present Neck: Neck: supple Chest: Chest palpation & inspection: normal inspection of the chest Resp: Effort & Inspection: normal respiratory effort Auscultation: clear to auscultation bilaterally Cardio: Jugular venous distension: no JVD Rhythm: regular rhythm Heart sounds: S1 normal heart sound present and S2 normal heart sound present GI: Inspection: normal to inspection Auscultation: normal bowel sounds : General: Yes no CVA tenderness Back/Spine/Pelvis: Back: no CVA tenderness Skin: General
--- NOTE | 2019-08-04 16:19 | PM.IMPN ---
Progress Note: A&P Assessment and Plan (1) Chest pain: Qualifiers: Chest pain type: precordial pain Qualified Code(s): R07.2 - Precordial pain Code(s): R07.9 - Chest pain, unspecified Status: Resolved Assessment and Plan: Pt admitted to IMU for observation. pt is on telemetry, troponin are negative, pt seen by cardiology. Chest pain appears anxiety related not cardiac, Pt anxiety medications has been dosed twice daily. Pt restarted on ranexa and BID dosing of lisinopril. Continue to watch her bps in the hospital (2) Anxiety disorder: Qualifiers: Anxiety disorder type: generalized anxiety disorder Qualified Code(s): F41.1 - Generalized anxiety disorder Code(s): F41.9 - Anxiety disorder, unspecified Status: Acute Assessment and Plan: Pt is on lorazepam once a day will divide the dose into two doses per day. Pt may need some counselling after her [place] experience for posttraumatic stress. Adviced some relaxation at home. (3) CAD (coronary artery disease): Qualifiers: Coronary Disease-Associated Artery/Lesion type: [place] artery [place] vs. transplanted heart: [place] heart Associated angina: with stable angina Qualified Code(s): I25.118 - Atherosclerotic heart disease of [place] coronary artery with other forms of angina pectoris Code(s): I25.10 - Atherosclerotic heart disease of [place] coronary artery without angina pectoris Status: Acute Assessment and Plan: Pt seen by cardiology no need for any further intervention. Ranolazine has been approved now and restarted in hospital. (4) Hyperlipidemia: Qualifiers: Hyperlipidemia type: unspecified Qualified Code(s): E78.5 - Hyperlipidemia, unspecified Code(s): E78.5 - Hyperlipidemia, unspecified Status: Chronic Assessment and Plan: Continue pts home medications. (5) Hypertension: Qualifiers: Hypertension type: essential hypertension Qualified Code(s): I10 - Essential (primary) hypertension Code(s): I10 - Essential (primary) hypertension Status: Chronic Assessment and Plan: Continue pts home medications, control Bp monitoring in hospital. Subjective Date/time seen: 08/04/19 16:19 Interval history: Pt admitted to IMU for observation. pt is on telemetry, troponin are negative, pt seen by cardiology. Chest pain appears anxiety related not cardiac, pt having problems with high bps at home, pt restarted on ranexa in hospital and started on lisinopril BID dosing, pt to be kept on telemetry for observation of heart rate and any BP elevation, family are concerned that her Bps go too high at home. Pt previous had issues with too low Bps, in previous admission. Awaiting optimal BP control. Review of Systems Review of Systems: All systems reviewed & are unremarkable except as noted in HPI and below Cardiovascular: Cardiovascular: Denies chest pain and Denies dyspnea Exam Const: General: well developed; No confusion Nutritional Appearance: well nourished Orientation/consciousness: No confusion HENMT: Head: normocephalic Eyes: General: appearance normal, both eyes and all related structures Pupils: Equal, round and reactive pupils present Neck: Neck: supple Chest: Chest palpation & inspection: normal inspection of the chest Resp: Effort & Inspection: normal respiratory effort Auscultation: clear to auscultation bilaterally Cardio: Jugular venous distension: no JVD Rhythm: regular rhythm Heart sounds: S1 normal heart sound present and S2 normal heart sound present GI: Inspection: normal to inspection Auscultation: normal bowel sounds : General: Yes no CVA tenderness Back/Spine/Pelvis: Back: no CVA tenderness Skin: General skin exam: normal color and dry skin Neuro: General: No confusion Cranial nerves: Yes CN's II-XII intact bilaterally and Yes Equal, round and reactive pupils present Cognition (Neuro): normal
--- NOTE | 2019-08-04 18:16 | PC.NURSE ---
Patient received as a transfer from IMU. Report received from
--- NOTE | 2019-08-04 18:31 | PC.NURSE ---
This patient, Jayshree Duron, was transferred to [[id number] ] on 08/04/19 at 1816. Personal belongings sent with patient. Belongings list checked and signed with receiving [ ]. Report given to [Casie ]. Appropriate documentation sent with patient.
[2019-08-04] MEDS: lisinopriL 5 MG TABLET PO (22:38)
[2019-08-05] VITALS (15 sets, daily range): BP systolic 118–184; BP diastolic 70–89; PULSE 63–82; RESP 14–18; TEMP 36.2–36.9; O2SAT 96–99
[2019-08-05 06:28] LABS: Blood Urea Nitrogen 15 mg/dL (7-17); Calcium 9.5 mg/dL (8.4-10.2); Carbon Dioxide 27 mmol/L (22-30); Chloride 93 mmol/L (98-107); Estimated CRCL calculation 48 ml/min; Estimated Glomerular Filt Rate > 60; Glucose 127 mg/dL (65-105); Potassium 4.1 mmol/L (3.4-5.0); Sodium 132 mmol/L (137-145)
--- NOTE | 2019-08-05 07:28 | ECG_ITS ---
Measurements Intervals [place] Rate: 64 P: -15 MI: 162 QRS: 6 QRSD: 90 T: 37 QT: 403 QTc: 418 Interpretive Statements SINUS RHYTHM SUPRAVENTRICULAR TRIGEMINY VOLTAGE CRITERIA FOR LVH ABNORMAL ECG Electronically Signed On 08-05-2019 9:30:59 PAINT MAKER by Je Andujar D.O.
[2019-08-05] MEDS: ASPIRIN 81 MG CHEWABLE TABLET PO (08:06)
[2019-08-05] MEDS: RANOLAZINE 500 MG TAB.ER.12H PO ×2 (08:06→22:00)
[2019-08-05] MEDS: LORAZEPAM 0.5 MG TABLET PO ×2 (08:06→18:47)
[2019-08-05] MEDS: ROSUVASTATIN 10 MG TABLET PO (08:07)
[2019-08-05] MEDS: carvediloL 12.5 MG TABLET PO ×2 (08:07→22:00)
[2019-08-05] MEDS: CLOPIDOGREL BISULFATE 75 MG TABLET PO (08:08)
[2019-08-05] MEDS: lisinopriL 5 MG TABLET PO ×2 (08:08→22:00)
[2019-08-05 08:14] LABS: Troponin I < 0.012 ng/mL (0.000-0.034)
--- NOTE | 2019-08-05 11:17 | PM.PNCARD ---
Progress Note: A&P Additional Plan Atypical chest pain, negative cardiac enzymes, HTN, Hx of CAD and PCI to LCX and LAD in Jun 2019, plan ASA, plavix, statin, B-cristian, lisinopril, Ranexa. Subjective Date/time seen: 08/05/19 11:17 Interval history: No acute events Tele: Sinus rhythm One episode of sharp chest pain, mild non radiating resolved in 2 hours Review of Systems Review of Systems: Narrative: General: good sleep last night, no chills or fevers Cardiac: No chest pain or palpitations or dizziness/syncope Respiratory: No SOB or cough Abdomen: Good appetite, no nausea or vomiting or diarrhea Hematologic: No bleeding or easy bruises Neurologic: No focal weakness or numbness Other complaints: None Exam Narrative: Exam Narrative: General: able to lie flat, no acute distress Respiratory: No chest wall tenderness, equal air entry and expansion, CTAB Cardiovascular: The heart has a regular rate and rhythm without murmur, No JVD. Lower extremities: No lower extremity edema. Warm, no skin lesion or bruises. Good capillary refill. Gastrointestinal: The abdomen is soft, nontender and nondistended with active bowel sounds. Psychiatric: Normal affect and co-operative Neurologic: Alert and oriented. No focal deficits. Speech is clear. No facial drooping. Objective Data Vital Signs Vital Signs: Vital Signs - 24 hr 08/04/19 12:00 08/04/19 12:31 08/04/19 14:00 Temperature 36.4 C L Pulse Rate 62 62 69 Respiratory Rate 18 18 Blood Pressure 146/76 H Pulse Oximetry 98 98 08/04/19 16:00 08/04/19 18:00 08/04/19 20:03 Temperature 36.6 C Pulse Rate 66 70 106 H Respiratory Rate 18 Blood Pressure 134/82 Pulse Oximetry 96 08/04/19 20:04 08/04/19 22:35 08/05/19 00:03 Temperature 36.5 C Pulse Rate 71 74 66 Respiratory Rate 16 Blood Pressure 145/73 H Pulse Oximetry 96 08/05/19 00:04 08/05/19 04:00 08/05/19 04:03 Temperature 36.3 C L 36.7 C Pulse Rate 63 64 64 Respiratory Rate 18 14 Blood Pressure 167/80 H 154/80 H Pulse Oximetry 97 97 08/05/19 07:29 08/05/19 08:00 08/05/19 08:07 Temperature 36.5 C Pulse Rate 68 64 63 Respiratory Rate 18 Blood Pressure 177/82 H Pulse Oximetry 96 08/05/19 10:00 Temperature 36.4 C L Pulse Rate 78 Respiratory Rate 18 Blood Pressure 118/70 Pulse Oximetry 97 Intake/Output Intake/Output: Intake & Output 08/02/19 08/03/19 08/04/19 08/05/19 23:59 23:59 23:59 23:59 Intake Total 960 1420 2009 640 Output Total 750 700 Balance 286 523 2734 640 Meds/Results Medications: Active Medications Generic Name Dose Route Start Last Admin Trade Name Freq PRN Reason Stop Dose Admin Acetaminophen 650 mg 08/02/19 05:06 Tylenol Tablet PO Q4H PRN Mild Pain, Fever, OR MET[place]F Hydrocodone Bitart/Acetaminophen 1 tab 08/02/19 05:06 [place] 5-325 Mg PO Q4H PRN Pain Rated 4-6 Aspirin 81 mg 08/03/19 08:00 08/05/19 08:06 Aspirin Chewable PO 81 mg DAILY@0800 CHACHA Administration Carvedilol 12.5 mg 08/02/19 21:00 08/05/19 08:07 Coreg PO 12.5 mg Q12HR CHACHA Administration Clopidogrel Bisulfate 75 mg 08/03/19 09:00 08/05/19 08:08 Plavix PO 75 mg DAILY CHACHA Administration Lisinopril 5 mg 08/04/19 21:00 08/05/19 08:08 Prinivil PO 5 mg Q12HR CHACHA Administration Lorazepam 0.5 mg 08/02/19 17:00 08/05/19 08:06 Ativan Tab PO 0.5 mg BID CHACHA Administration Ranolazine 500 mg 08/02/19 21:00 08/05/19 08:06 Ranexa PO 500 mg Q12HR CHACHA Administration Rosuvastatin Calcium 10 mg 08/03/19 09:00 08/05/19 08:07 Crestor PO 10 mg DAILY CHACHA Administration Radiology Results: ITS Impressions Chest X-Ray 08/02/19 06:56 IMPRESSION: 1. Mild atelectasis of the right lung base. Labs Labs: Laboratory Results - last 24 hr 08/05/19 08/05/19 05:44 07:45 Sodium 132 L Potassium 4.1 Chloride 93 L Carbon Dioxide 27 B
--- NOTE | 2019-08-05 13:01 | PM.IMPN ---
Progress Note: A&P Assessment and Plan (1) Chest pain: Qualifiers: Chest pain type: precordial pain Qualified Code(s): R07.2 - Precordial pain Code(s): R07.9 - Chest pain, unspecified Status: Resolved Assessment and Plan: Pt admitted to IMU for observation. pt is on telemetry, troponin are negative, pt seen by cardiology. Chest pain appears anxiety related not cardiac, Pt anxiety medications has been dosed twice daily. Pt restarted on ranexa and BID dosing of lisinopril. Continue to watch her bps in the hospital. Pt had episode of sharp chest pain, continue to watch today. EKG shows nil acute LVH, troponin is normal today. Daughter spoke to journeyman operator assistant today. (2) Anxiety disorder: Qualifiers: Anxiety disorder type: generalized anxiety disorder Qualified Code(s): F41.1 - Generalized anxiety disorder Code(s): F41.9 - Anxiety disorder, unspecified Status: Acute Assessment and Plan: Pt is on lorazepam once a day will divide the dose into two doses per day. Pt may need some counselling after her [place] experience for posttraumatic stress. Adviced some relaxation at home. (3) CAD (coronary artery disease): Qualifiers: Coronary Disease-Associated Artery/Lesion type: [place] artery [place] vs. transplanted heart: [place] heart Associated angina: with stable angina Qualified Code(s): I25.118 - Atherosclerotic heart disease of [place] coronary artery with other forms of angina pectoris Code(s): I25.10 - Atherosclerotic heart disease of [place] coronary artery without angina pectoris Status: Acute Assessment and Plan: Pt seen by cardiology no need for any further intervention. Ranolazine has been approved now and restarted in hospital. (4) Hyperlipidemia: Qualifiers: Hyperlipidemia type: unspecified Qualified Code(s): E78.5 - Hyperlipidemia, unspecified Code(s): E78.5 - Hyperlipidemia, unspecified Status: Chronic Assessment and Plan: Continue pts home medications. (5) Hypertension: Qualifiers: Hypertension type: essential hypertension Qualified Code(s): I10 - Essential (primary) hypertension Code(s): I10 - Essential (primary) hypertension Status: Chronic Assessment and Plan: Continue pts home medications, control Bp monitoring in hospital. Subjective Date/time seen: 08/05/19 13:01 Interval history: Pt admitted to IMU for observation. pt is on telemetry, troponin are negative, pt seen by cardiology. Chest pain appears anxiety related not cardiac, pt having problems with high bps at home, pt restarted on ranexa in hospital and started on lisinopril BID dosing, pt to be kept on telemetry for observation of heart rate and any BP elevation, family are concerned that her Bps go too high at home. Pt previous had issues with too low Bps, in previous admission. Awaiting optimal BP control. BP slightly high this morning, pt had an episode of sharp chest pain this morning, EKG shows nil acute LVH. troponin is normal today. Review of Systems Review of Systems: All systems reviewed & are unremarkable except as noted in HPI and below Cardiovascular: Cardiovascular: Reports chest pain (sharp in nature ), Denies diaphoresis, Denies dyspnea and Denies dyspnea on exertion Respiratory: Respiratory: Denies dyspnea and Denies dyspnea on exertion Gastrointestinal: Gastrointestinal: Denies abdominal pain Musculoskeletal: Musculoskeletal: Denies no additional musculoskeletal complaints Neurologic: Denies confusion Psychiatric: Psychiatric: Reports anxiety and Denies confusion Exam Const: General: well developed; No confusion Nutritional Appearance: well nourished Orientation/consciousness: No confusion HENMT: Head: normocephalic Eyes: General: appearance normal, both eyes and all related structures Pupils: Equal, round and reactive pupils present Neck: Neck: supple Chest: Chest palpatio
[2019-08-06] VITALS (15 sets, daily range): BP systolic 140–184; BP diastolic 76–82; PULSE 62–75; RESP 16–18; TEMP 36.1–36.9; O2SAT 95–98
[2019-08-06] MEDS: LORAZEPAM 0.5 MG TABLET PO ×2 (08:13→17:56)
[2019-08-06] MEDS: ASPIRIN 81 MG CHEWABLE TABLET PO (08:13)
[2019-08-06] MEDS: CLOPIDOGREL BISULFATE 75 MG TABLET PO (08:13)
[2019-08-06] MEDS: ROSUVASTATIN 10 MG TABLET PO (08:13)
[2019-08-06] MEDS: carvediloL 12.5 MG TABLET PO ×2 (08:13→21:39)
[2019-08-06] MEDS: lisinopriL 5 MG TABLET PO ×2 (08:13→21:40)
[2019-08-06] MEDS: RANOLAZINE 500 MG TAB.ER.12H PO ×2 (08:13→21:39)
[2019-08-06 11:34] LABS: Metanephrine, Free 28 pg/mL (<=57); Normetanephrine, Free 56 pg/mL (<=148); Total, Free (MN + NMN) 84 pg/mL (<=205)
--- NOTE | 2019-08-06 15:44 | PM.IMPN ---
Progress Note: A&P Assessment and Plan (1) Chest pain: Qualifiers: Chest pain type: precordial pain Qualified Code(s): R07.2 - Precordial pain Code(s): R07.9 - Chest pain, unspecified Status: Resolved Assessment and Plan: Pt admitted to IMU for observation. pt is on telemetry, troponin are negative, pt seen by cardiology. Chest pain appears anxiety related not cardiac, Pt anxiety medications has been dosed twice daily. Pt restarted on ranexa and BID dosing of lisinopril. Continue to watch her bps in the hospital. Pt had episode of sharp chest pain, yesterday, no chest pain today, BP slightly high, continue to monitor. States she feels SOB at times (2) Anxiety disorder: Qualifiers: Anxiety disorder type: generalized anxiety disorder Qualified Code(s): F41.1 - Generalized anxiety disorder Code(s): F41.9 - Anxiety disorder, unspecified Status: Acute Assessment and Plan: Pt is on lorazepam once a day will divide the dose into two doses per day. Pt may need some counselling after her [place] experience for posttraumatic stress. Adviced some relaxation at home. (3) CAD (coronary artery disease): Qualifiers: Coronary Disease-Associated Artery/Lesion type: [place] artery [place] vs. transplanted heart: [place] heart Associated angina: with stable angina Qualified Code(s): I25.118 - Atherosclerotic heart disease of [place] coronary artery with other forms of angina pectoris Code(s): I25.10 - Atherosclerotic heart disease of [place] coronary artery without angina pectoris Status: Acute Assessment and Plan: Pt seen by cardiology no need for any further intervention. Ranolazine has been approved now and restarted in hospital. (4) Hyperlipidemia: Qualifiers: Hyperlipidemia type: unspecified Qualified Code(s): E78.5 - Hyperlipidemia, unspecified Code(s): E78.5 - Hyperlipidemia, unspecified Status: Chronic Assessment and Plan: Continue pts home medications. (5) Hypertension: Qualifiers: Hypertension type: essential hypertension Qualified Code(s): I10 - Essential (primary) hypertension Code(s): I10 - Essential (primary) hypertension Status: Chronic Assessment and Plan: Continue pts home medications, control Bp monitoring in hospital. Subjective Date/time seen: 08/06/19 15:44 Interval history: Pt admitted to IMU for observation. pt is on telemetry, troponin are negative, pt seen by cardiology. Chest pain appears anxiety related not cardiac, pt having problems with high bps at home, pt restarted on ranexa in hospital and started on lisinopril BID dosing, pt to be kept on telemetry for observation of heart rate and any BP elevation, family are concerned that her Bps go too high at home. Pt previous had issues with too low Bps, in previous admission. Awaiting optimal BP control. BP slightly high this morning, pt had an episode of sharp chest pain yesterday, Bp still slightly high. Continue to monitor. Describes some SOB at times Review of Systems Review of Systems: All systems reviewed & are unremarkable except as noted in HPI and below Cardiovascular: Cardiovascular: Reports chest pain (sharp in nature ), Denies diaphoresis, Denies dyspnea and Denies dyspnea on exertion Respiratory: Respiratory: Denies dyspnea and Denies dyspnea on exertion Gastrointestinal: Gastrointestinal: Denies abdominal pain Musculoskeletal: Musculoskeletal: Denies no additional musculoskeletal complaints Neurologic: Denies confusion Psychiatric: Psychiatric: Reports anxiety and Denies confusion Exam Const: General: well developed; No confusion Nutritional Appearance: well nourished Orientation/consciousness: No confusion HENMT: Head: normocephalic Eyes: General: appearance normal, both eyes and all related structures Pupils: Equal, round and reactive pupils present Neck: Neck: supple Chest: Chest pa
--- NOTE | 2019-08-06 15:58 | PM.PNCARD ---
Progress Note: A&P Additional Plan Atypical chest pain, negative cardiac enzymes, HTN, Hx of CAD and PCI to LCX and LAD in Jun 2019, HTN flactuates plan ASA, plavix, statin, B-cristian, lisinopril 5 mg BID, Ranexa, consider adding amlodipine 2.5 mg daily at noon time. Subjective Date/time seen: 08/06/19 15:58 Interval history: no acute events Tele: [email or web address] rhythm Review of Systems Review of Systems: Narrative: General: good sleep last night, no chills or fevers Cardiac: No chest pain or palpitations or dizziness/syncope Respiratory: No SOB or cough Abdomen: Good appetite, no nausea or vomiting or diarrhea Hematologic: No bleeding or easy bruises Neurologic: No focal weakness or numbness Other complaints: None Exam Narrative: Exam Narrative: General: able to lie flat, no acute distress Respiratory: No chest wall tenderness, equal air entry and expansion, CTAB Cardiovascular: The heart has a regular rate and rhythm without murmur, No JVD. Lower extremities: No lower extremity edema. Warm, no skin lesion or bruises. Good capillary refill. Gastrointestinal: The abdomen is soft, nontender and nondistended with active bowel sounds. Psychiatric: Normal affect and co-operative Neurologic: Alert and oriented. No focal deficits. Speech is clear. No facial drooping. Objective Data Vital Signs Vital Signs: Vital Signs - 24 hr 08/05/19 16:00 08/05/19 18:00 08/05/19 20:00 Temperature 36.9 C Pulse Rate 66 72 71 Respiratory Rate 18 Blood Pressure 184/84 H Pulse Oximetry 99 08/05/19 20:34 08/05/19 22:00 08/06/19 00:00 Temperature 36.4 C L Pulse Rate 71 82 66 Respiratory Rate 16 Blood Pressure 150/89 H Pulse Oximetry 98 08/06/19 04:00 08/06/19 04:52 08/06/19 08:00 Temperature 36.9 C Pulse Rate 68 73 68 Respiratory Rate 16 Blood Pressure 140/78 Pulse Oximetry 96 08/06/19 08:13 08/06/19 10:00 08/06/19 12:00 Temperature 36.4 C L Pulse Rate 62 75 64 Respiratory Rate 18 Blood Pressure 141/76 H Pulse Oximetry 96 08/06/19 14:00 Temperature 36.1 C L Pulse Rate 68 Respiratory Rate 18 Blood Pressure 152/77 H Pulse Oximetry 98 Intake/Output Intake/Output: Intake & Output 08/03/19 08/04/19 08/05/19 08/06/19 23:59 23:59 23:59 23:59 Intake Total 1420 2009 1620 1220 Output Total 700 Balance 720 2009 1620 1220 Meds/Results Medications: Active Medications Generic Name Dose Route Start Last Admin Trade Name Freq PRN Reason Stop Dose Admin Acetaminophen 650 mg 08/02/19 05:06 Tylenol Tablet PO Q4H PRN Mild Pain, Fever, OR METCALF Hydrocodone Bitart/Acetaminophen 1 tab 08/02/19 05:06 [place] 5-325 Mg PO Q4H PRN Pain Rated 4-6 Aspirin 81 mg 08/03/19 08:00 08/06/19 08:13 Aspirin Chewable PO 81 mg DAILY@0800 CHACHA Administration Carvedilol 12.5 mg 08/02/19 21:00 08/06/19 08:13 Coreg PO 12.5 mg Q12HR CHACHA Administration Clopidogrel Bisulfate 75 mg 08/03/19 09:00 08/06/19 08:13 Plavix PO 75 mg DAILY CHACHA Administration Lisinopril 5 mg 08/04/19 21:00 08/06/19 08:13 Prinivil PO 5 mg Q12HR CHACHA Administration Lorazepam 0.5 mg 08/02/19 17:00 08/06/19 08:13 Ativan Tab PO 0.5 mg BID CHACHA Administration Ranolazine 500 mg 08/02/19 21:00 08/06/19 08:13 Ranexa PO 500 mg Q12HR CHACHA Administration Rosuvastatin Calcium 10 mg 08/03/19 09:00 08/06/19 08:13 Crestor PO 10 mg DAILY CHACHA Administration Radiology Results: ITS Impressions Chest X-Ray 08/02/19 06:56 IMPRESSION: 1. Mild atelectasis of the right lung base. Labs Labs: Laboratory Results - last 24 hr 08/03/19 06:22 Plasma Free Metaneph 28 Plasma Free Normeta 56 Pls Totl Free Metaneph 84 Quality VTE Prophylaxis VTE prophylaxis: mechanical ordered
[2019-08-07] VITALS (15 sets, daily range): BP systolic 140–166; BP diastolic 76–85; PULSE 62–73; RESP 16; TEMP 36.1–37; O2SAT 97–99
[2019-08-07] MEDS: hydrALAZINE HCL 20 MG/ML VIAL 10 MG IV PUSH (00:27)
[2019-08-07] MEDS: LORAZEPAM 0.5 MG TABLET PO ×2 (08:18→16:44)
[2019-08-07] MEDS: ASPIRIN 81 MG CHEWABLE TABLET PO (08:18)
[2019-08-07] MEDS: CLOPIDOGREL BISULFATE 75 MG TABLET PO (08:18)
[2019-08-07] MEDS: ROSUVASTATIN 10 MG TABLET PO (08:19)
[2019-08-07] MEDS: RANOLAZINE 500 MG TAB.ER.12H PO ×2 (08:19→21:09)
[2019-08-07] MEDS: carvediloL 12.5 MG TABLET PO ×2 (08:19→21:09)
[2019-08-07] MEDS: lisinopriL 5 MG TABLET PO ×2 (08:20→21:09)
--- NOTE | 2019-08-07 15:24 | PM.PNCARD ---
Progress Note: A&P Additional Plan 74-year-old lady with coronary artery disease recent acute coronary syndrome just over 1 month ago with PCI to the circumflex and LAD. Multiple readmissions with chest pain which have proved to be noncardiac Significant anxiety prompting these multiple readmissions Language barrier with patient's peaking no [place] and some concern in the past about patient's not taking medications as prescribed upon discharge. This issue appears to be effectively resolved PT OT consultation to ensure the patient can ambulate and does not report exertional symptoms prior to discharge Significant family concern regarding hypertension and blood pressure variability. Long discussion regarding this as it pertains to her management. A was reminding the patient and her family that several weeks ago she had an episode of symptomatic/problematic hypotension resulting in syncope while she was in the hospital and again while she was at home. I would rather that her blood pressure at times be hypertensive rather than being losing consciousness because of hypotension. Subjective Date/time seen: Date of service: 08/07/19 15:24 Interval history: Follow-up visit for coronary artery disease with multiple readmissions with atypical sounding chest pain. Patient has spoken to through electronic asl interpreter she feels well today. Had some momentary brief sharp episodes of chest pain last evening and a couple of more these over the weekend as were charted and are progress notes. Long discussion with the patient and the family indicating that these momentary episodes of sharp chest pain are not really related to myocardial ischemia and should not raise great concern regarding the status of her coronary artery disease. She has been and readmitted multiple times and on none of the subsequent admissions has there been any evidence of acute coronary syndrome. Exam Const: General: comfortable and no acute distress HENMT: Mouth: Yes moist mucous membranes Eyes: Sclera: sclerae normal Pupils: Equal, round and reactive pupils present Neck: Neck: supple and no JVD Thyroid: thyroid normal Other: No audible carotid bruit Resp: Effort & Inspection: normal respiratory effort Auscultation: clear to auscultation bilaterally Cardio: Rate: regular rate Rhythm: regular rhythm Other: No murmur no gallop no rub Skin: General skin exam: normal color Extrem: General: normal to inspection Objective Data Vital Signs Vital Signs: Vital Signs - 24 hr 08/06/19 16:00 08/06/19 18:00 08/06/19 20:00 Temperature 36.7 C Pulse Rate 71 70 73 Respiratory Rate 18 Blood Pressure 184/81 H Pulse Oximetry 96 08/06/19 21:39 08/06/19 22:00 08/06/19 22:36 Temperature 36.2 C L Pulse Rate 70 70 65 Respiratory Rate 16 Blood Pressure 180/82 H 162/82 H Pulse Oximetry 97 95 08/06/19 23:30 08/07/19 00:00 08/07/19 02:00 Temperature Pulse Rate 65 62 67 Respiratory Rate 16 Blood Pressure 161/78 H Pulse Oximetry 95 08/07/19 04:00 08/07/19 06:00 08/07/19 08:00 Temperature 36.1 C L Pulse Rate 69 71 63 Respiratory Rate 16 Blood Pressure 140/81 Pulse Oximetry 97 08/07/19 08:19 08/07/19 08:20 08/07/19 10:00 Temperature 36.4 C Pulse Rate 65 65 72 Respiratory Rate 16 16 Blood Pressure 158/76 H Pulse Oximetry 97 99 08/07/19 12:00 08/07/19 14:00 Temperature 36.1 C L Pulse Rate 70 66 Respiratory Rate 16 Blood Pressure 161/85 H Pulse Oximetry 98 Intake/Output Intake/Output: Intake & Output 08/04/19 08/05/19 08/06/19 08/07/19 23:59 23:59 23:59 23:59 Intake Total 2009 1620 2150 292 Balance 2010 1120 2158 655 Meds/Results Medications: Active Medications Generic Name Dose Route Start Last Admin Trade Name Freq PRN Reason Stop Dose Admin Acetaminophen 650 mg 08/02/19 05:06 Tylenol Tablet PO Q4H PRN Mild Pain, Fever, OR [place]F Hydrocodone Bitart/Acetaminophen 1 tab
--- NOTE | 2019-08-07 17:43 | PM.IMPN ---
Progress Note: A&P Assessment and Plan (1) Chest pain: Qualifiers: Chest pain type: precordial pain Qualified Code(s): R07.2 - Precordial pain Code(s): R07.9 - Chest pain, unspecified Status: Resolved Assessment and Plan: patient is 74-year-old [place]-speaking only about a month ago patient was admitted with chest pain and was found to have coronary artery disease had a PCI and LAD and circumflex was stented since then patient has been admitted several times with complaint of chest pain dizziness and syncopal episodes, there is a concern the patient may have not been taking her medication properly due to language barrier and family situation patient again presents with complaint chest pain and dizziness patient is seen by paper cone machine operator recommending to monitor patient with exertion if her symptoms are getting worse. It present time patient lying in the bed and denies any chest pain shortness of breath palpitation her son is a present in the room he does not speak any [place] (2) Anxiety disorder: Qualifiers: Anxiety disorder type: generalized anxiety disorder Qualified Code(s): F41.1 - Generalized anxiety disorder Code(s): F41.9 - Anxiety disorder, unspecified Status: Acute Assessment and Plan: Pt is on lorazepam once a day will divide the dose into two doses per day. Pt may need some counselling after her [place] experience for posttraumatic stress. Adviced some relaxation at home. (3) CAD (coronary artery disease): Qualifiers: Coronary Disease-Associated Artery/Lesion type: [place] artery [place] vs. transplanted heart: [place] heart Associated angina: with stable angina Qualified Code(s): I25.118 - Atherosclerotic heart disease of [place] coronary artery with other forms of angina pectoris Code(s): I25.10 - Atherosclerotic heart disease of [place] coronary artery without angina pectoris Status: Acute Assessment and Plan: Pt seen by cardiology no need for any further intervention. Ranolazine has been approved now and restarted in hospital. (4) Hyperlipidemia: Qualifiers: Hyperlipidemia type: unspecified Qualified Code(s): E78.5 - Hyperlipidemia, unspecified Code(s): E78.5 - Hyperlipidemia, unspecified Status: Chronic Assessment and Plan: Continue pts home medications. (5) Hypertension: Qualifiers: Hypertension type: essential hypertension Qualified Code(s): I10 - Essential (primary) hypertension Code(s): I10 - Essential (primary) hypertension Status: Chronic Assessment and Plan: Continue pts home medications, control Bp monitoring in hospital. Subjective Date/time seen: 08/07/19 17:43 patient is 74-year-old [place]-speaking only about a month ago patient was admitted with chest pain and was found to have coronary artery disease had a PCI and LAD and circumflex was stented since then patient has been admitted several times with complaint of chest pain dizziness and syncopal episodes, there is a concern the patient may have not been taking her medication properly due to language barrier and family situation patient again presents with complaint chest pain and dizziness patient is seen by paper cone machine operator recommending to monitor patient with exertion if her symptoms are getting worse. It present time patient lying in the bed and denies any chest pain shortness of breath palpitation her son is a present in the room he does not speak any [place] Review of Systems Review of Systems: All systems reviewed & are unremarkable except as noted in HPI and below Exam Const: General: comfortable and no acute distress HENMT: General nose exam: Normal nares present Mouth: Yes moist mucous membranes Eyes: General: appearance normal, both eyes and all related structures Sclera: sclerae normal Neck: Neck: supple Resp: Effort & Inspection: normal respiratory effort Auscultation: clear to a
[2019-08-08] VITALS (15 sets, daily range): BP systolic 130–154; BP diastolic 68–81; PULSE 66–84; RESP 16–18; TEMP 36.2–36.7; O2SAT 98–99
[2019-08-08] MEDS: CLOPIDOGREL BISULFATE 75 MG TABLET PO (08:35)
[2019-08-08] MEDS: ASPIRIN 81 MG CHEWABLE TABLET PO (08:35)
[2019-08-08] MEDS: LORAZEPAM 0.5 MG TABLET PO ×2 (08:35→17:52)
[2019-08-08] MEDS: carvediloL 12.5 MG TABLET PO ×2 (08:35→21:33)
[2019-08-08] MEDS: lisinopriL 5 MG TABLET PO ×2 (08:35→21:33)
[2019-08-08] MEDS: ROSUVASTATIN 10 MG TABLET PO (08:36)
[2019-08-08] MEDS: RANOLAZINE 500 MG TAB.ER.12H PO ×2 (08:36→21:33)
[2019-08-08 10:16] LABS: Blood Urea Nitrogen 17 mg/dL (7-17); Calcium 9.9 mg/dL (8.4-10.2); Carbon Dioxide 31 mmol/L (22-30); Chloride 90 mmol/L (98-107); Estimated CRCL calculation 48 ml/min; Estimated Glomerular Filt Rate > 60; Glucose 170 mg/dL (65-105); Magnesium 1.9 mg/dL (1.6-2.3); Potassium 4.1 mmol/L (3.4-5.0); Sodium 131 mmol/L (137-145)
--- NOTE | 2019-08-08 11:39 | PM.PNCARD ---
Progress Note: A&P Assessment and Plan (1) Chest pain: Qualifiers: Chest pain type: precordial pain Qualified Code(s): R07.2 - Precordial pain Code(s): R07.9 - Chest pain, unspecified Status: Resolved Assessment and Plan: Denies chest discomfort that sounds anginal in nature. She was pain-free at the time of our interview. Continue aspirin, clopidogrel, carvedilol, rosuvastatin and Ranexa. (2) CAD (coronary artery disease): Qualifiers: Coronary Disease-Associated Artery/Lesion type: [place] artery [place] vs. transplanted heart: [place] heart Associated angina: with stable angina Qualified Code(s): I25.118 - Atherosclerotic heart disease of [place] coronary artery with other forms of angina pectoris Code(s): I25.10 - Atherosclerotic heart disease of [place] coronary artery without angina pectoris Status: Acute Assessment and Plan: Status post stenting to the proximal circumflex, obtuse marginal and LAD 06/30/2019. This is her 5th admission since her intervention. Medications have been adjusted several times to try to avoid hypotension as well as better control her blood pressure. Medications as above. She has documented hypotension when she received nitroglycerin during her initial stay as well as a trial of isosorbide on 07/08/2019. Do not plan on sending her home with nitroglycerin to avoid any hypotensive/syncopal episodes. No anginal symptoms as above (3) Hyperlipidemia: Qualifiers: Hyperlipidemia type: unspecified Qualified Code(s): E78.5 - Hyperlipidemia, unspecified Code(s): E78.5 - Hyperlipidemia, unspecified Status: Chronic Assessment and Plan: Continue rosuvastatin (4) Hypertension: Qualifiers: Hypertension type: essential hypertension Qualified Code(s): I10 - Essential (primary) hypertension Code(s): I10 - Essential (primary) hypertension Status: Chronic Assessment and Plan: Blood pressure over the last 24 hours: 155/80, 152/78, 158/87, 158/67, 139/76, 126/79, 139/72, and 157/88. Continue carvedilol 12.5 mg q.12 hours. Lisinopril will be changed to q.12 hours dosing to better cover blood pressures during the night. (dose remains 10 mg daily) on discharge Metanephrines, fraction/free ordered by Dr Newman were received in the lab. Results are still pending. Will continue to monitor her chart for results. Additional Plan 74-year-old lady with coronary artery disease recent acute coronary syndrome just over 1 month ago with PCI to the circumflex and LAD. PT OT consultation to ensure the patient can ambulate and does not report exertional symptoms prior to discharge Okay for discharge if no chest pain with exertion during therapy Subjective Date/time seen: 08/08/19 11:39 Interval history: Follow-up visit for coronary artery disease with multiple readmissions with atypical sounding chest pain. Date of service 08/08/2019 No chest pain. Feels weak. No shortness of breath she has been and readmitted multiple times and on none of the subsequent admissions has there been any evidence of acute coronary syndrome. Review of Systems Review of Systems: All systems reviewed & are unremarkable except as noted in HPI and below Constitutional: Constitutional: Denies anorexia and Denies fatigue Eyes: Eyes: Reports no additional eye complaints ENT: Reports system reviewed and no additional complaints, except as documented Cardiovascular: Cardiovascular: Denies chest pain, Denies chest pain with activity, Denies syncope, Denies leg edema, Denies lightheadedness, Denies dyspnea and Denies dyspnea on exertion Respiratory: Respiratory: Denies dyspnea and Denies dyspnea on exertion Gastrointestinal: Gastrointestinal: Denies abdominal pain and Denies vomiting Genitourinary: Genitourinary: Denies hematuria Musculoskeletal: Musculoskel
--- NOTE | 2019-08-08 18:11 | PM.IMPN ---
Progress Note: A&P Assessment and Plan (1) Chest pain: Qualifiers: Chest pain type: precordial pain Qualified Code(s): R07.2 - Precordial pain Code(s): R07.9 - Chest pain, unspecified Status: Resolved Assessment and Plan: patient is 74-year-old Andorran-speaking only about a month ago patient was admitted with chest pain and was found to have coronary artery disease had a PCI and LAD and circumflex was stented since then patient has been admitted several times with complaint of chest pain dizziness and syncopal episodes, there is a concern the patient may have not been taking her medication properly due to language barrier and family situation patient again presents with complaint chest pain and dizziness patient is seen by core java software engineer recommending to monitor patient with exertion if her symptoms are getting worse. Today patient was able to walk with the physical therapy along the corridor did not have any complaint of chest pain shortness of breath or dizziness patient states feeling much better her son is present in the room he feels comfortable taking her home pending cardiology assessment, later I spoke with patient's daughter and answered all her questions (2) Anxiety disorder: Qualifiers: Anxiety disorder type: generalized anxiety disorder Qualified Code(s): F41.1 - Generalized anxiety disorder Code(s): F41.9 - Anxiety disorder, unspecified Status: Acute Assessment and Plan: Pt is on lorazepam once a day will divide the dose into two doses per day. Pt may need some counselling after her [place] experience for posttraumatic stress. Adviced some relaxation at home. (3) CAD (coronary artery disease): Qualifiers: Coronary Disease-Associated Artery/Lesion type: [place] artery [place] vs. transplanted heart: [place] heart Associated angina: with stable angina Qualified Code(s): I25.118 - Atherosclerotic heart disease of [place] coronary artery with other forms of angina pectoris Code(s): I25.10 - Atherosclerotic heart disease of [place] coronary artery without angina pectoris Status: Acute Assessment and Plan: Pt seen by cardiology no need for any further intervention. Ranolazine has been approved now and restarted in hospital. (4) Hyperlipidemia: Qualifiers: Hyperlipidemia type: unspecified Qualified Code(s): E78.5 - Hyperlipidemia, unspecified Code(s): E78.5 - Hyperlipidemia, unspecified Status: Chronic Assessment and Plan: Continue pts home medications. (5) Hypertension: Qualifiers: Hypertension type: essential hypertension Qualified Code(s): I10 - Essential (primary) hypertension Code(s): I10 - Essential (primary) hypertension Status: Chronic Assessment and Plan: Continue pts home medications, control Bp monitoring in hospital. Subjective Date/time seen: 08/08/19 18:11 patient is 74-year-old Andorran-speaking only about a month ago patient was admitted with chest pain and was found to have coronary artery disease had a PCI and LAD and circumflex was stented since then patient has been admitted several times with complaint of chest pain dizziness and syncopal episodes, there is a concern the patient may have not been taking her medication properly due to language barrier and family situation patient again presents with complaint chest pain and dizziness patient is seen by core java software engineer recommending to monitor patient with exertion if her symptoms are getting worse. Today patient was able to walk with the physical therapy along the corridor did not have any complaint of chest pain shortness of breath or dizziness patient states feeling much better her son is present in the room he feels comfortable taking her home pending cardiology assessment, later I spoke with patient's daughter and answered all her questions Review of Systems Review of Systems: All systems reviewed & are unremarkable e
[2019-08-09] VITALS: PULSE 73
[2019-08-09 04:00] VITALS: PULSE 74
[2019-08-09 05:45] VITALS: BP 143/73; PULSE 66; RESP 14; TEMP 36.1; O2SAT 97
[2019-08-09 06:19] LABS: Blood Urea Nitrogen 14 mg/dL (7-17); Calcium 9.3 mg/dL (8.4-10.2); Carbon Dioxide 27 mmol/L (22-30); Chloride 95 mmol/L (98-107); Estimated CRCL calculation 55 ml/min; Estimated Glomerular Filt Rate > 60; Glucose 122 mg/dL (65-105); Potassium 4.1 mmol/L (3.4-5.0); Sodium 131 mmol/L (137-145)
[2019-08-09 08:00] VITALS: PULSE 64
[2019-08-09] MEDS: ASPIRIN 81 MG CHEWABLE TABLET PO (08:31)
[2019-08-09 08:32] VITALS: PULSE 73
[2019-08-09] MEDS: CLOPIDOGREL BISULFATE 75 MG TABLET PO (08:32)
[2019-08-09] MEDS: LORAZEPAM 0.5 MG TABLET PO (08:32)
[2019-08-09] MEDS: carvediloL 12.5 MG TABLET PO (08:32)
[2019-08-09] MEDS: ROSUVASTATIN 10 MG TABLET PO (08:32)
[2019-08-09] MEDS: RANOLAZINE 500 MG TAB.ER.12H PO (08:32)
[2019-08-09] MEDS: lisinopriL 5 MG TABLET PO (08:32)
--- NOTE | 2019-08-09 10:02 | PM.DS ---
DS: Diagnosis Admitting Diagnosis Admitting Diagnosis: Precordial pain Discharge Diagnosis (1) Chest pain: Qualifiers: Chest pain type: precordial pain Qualified Code(s): R07.2 - Precordial pain Code(s): R07.9 - Chest pain, unspecified Status: Resolved Assessment and Plan: patient is 74-year-old Turkmen-speaking only about a month ago patient was admitted with chest pain and was found to have coronary artery disease had a PCI and LAD and circumflex was stented since then patient has been admitted several times with complaint of chest pain dizziness and syncopal episodes, there is a concern the patient may have not been taking her medication properly due to language barrier and family situation patient again presents with complaint chest pain and dizziness patient is seen by fur finisher recommending to monitor patient with exertion if her symptoms are getting worse. Today patient was able to walk with the physical therapy along the corridor did not have any complaint of chest pain shortness of breath or dizziness patient states feeling much better her son is present in the room he feels comfortable taking her home pending cardiology assessment, later I spoke with patient's daughter and answered all her questions (2) Anxiety disorder: Qualifiers: Anxiety disorder type: generalized anxiety disorder Qualified Code(s): F41.1 - Generalized anxiety disorder Code(s): F41.9 - Anxiety disorder, unspecified Status: Acute Assessment and Plan: Pt is on lorazepam once a day will divide the dose into two doses per day. Pt may need some counselling after her [place] experience for posttraumatic stress. Adviced some relaxation at home. (3) CAD (coronary artery disease): Qualifiers: Coronary Disease-Associated Artery/Lesion type: [place] artery [place] vs. transplanted heart: [place] heart Associated angina: with stable angina Qualified Code(s): I25.118 - Atherosclerotic heart disease of [place] coronary artery with other forms of angina pectoris Code(s): I25.10 - Atherosclerotic heart disease of [place] coronary artery without angina pectoris Status: Acute Assessment and Plan: Pt seen by cardiology no need for any further intervention. Ranolazine has been approved now and restarted in hospital. (4) Hyperlipidemia: Qualifiers: Hyperlipidemia type: unspecified Qualified Code(s): E78.5 - Hyperlipidemia, unspecified Code(s): E78.5 - Hyperlipidemia, unspecified Status: Chronic Assessment and Plan: Continue pts home medications. (5) Hypertension: Qualifiers: Hypertension type: essential hypertension Qualified Code(s): I10 - Essential (primary) hypertension Code(s): I10 - Essential (primary) hypertension Status: Chronic Assessment and Plan: Continue pts home medications, control Bp monitoring in hospital. DS: Summary Hospital Course Reason for hospitalization: Narrative: Jayshree Duron is a 74 year old female admitted chest pain similar to before when she had NC. Pt speaks Turkmen, i spoke to her son in law, who she lives with. He says that she is very good at taking all her medications, but notices that her bP shots up in the night time. Son in law states this is her 5 th admission to the hospital in past 4 weeks. From previous admission notes - patient was hospitalized here in June 30 for chest pain. She underwent left heart catheterization which showed coronary disease requiring a BRYAN in the LAD, a BRYAN in the proximal circumflex and a BRYAN in the OM circumflex branch. There was a small distal circumflex branch of 90% stenosis that was too small for PCI. Patient returned to the hospital on July 06 for complaints of chest pain and found to have elevated troponins. It was felt related to small-vessel disease. Patient return to the emergency room on July 10 for syncope and found to have el
--- NOTE | 2019-08-09 11:10 | PM.PNCARD ---
Progress Note: A&P Assessment and Plan (1) Chest pain: Qualifiers: Chest pain type: precordial pain Qualified Code(s): R07.2 - Precordial pain Code(s): R07.9 - Chest pain, unspecified Status: Resolved Assessment and Plan: Denies chest discomfort that sounds anginal in nature. She was pain-free at the time of our interview. Continue aspirin, clopidogrel, carvedilol, rosuvastatin and Ranexa. Discontinue telemetry monitoring (2) CAD (coronary artery disease): Qualifiers: Coronary Disease-Associated Artery/Lesion type: [place] artery [place] vs. transplanted heart: [place] heart Associated angina: with stable angina Qualified Code(s): I25.118 - Atherosclerotic heart disease of [place] coronary artery with other forms of angina pectoris Code(s): I25.10 - Atherosclerotic heart disease of [place] coronary artery without angina pectoris Status: Acute Assessment and Plan: Status post stenting to the proximal circumflex, obtuse marginal and LAD 06/30/2019. This is her 5th admission since her intervention. Medications have been adjusted several times to try to avoid hypotension as well as better control her blood pressure. Medications as above. She has documented hypotension when she received nitroglycerin during her initial stay as well as a trial of isosorbide on 07/08/2019. Do not plan on sending her home with nitroglycerin to avoid any hypotensive/syncopal episodes. No anginal symptoms as above (3) Hyperlipidemia: Qualifiers: Hyperlipidemia type: unspecified Qualified Code(s): E78.5 - Hyperlipidemia, unspecified Code(s): E78.5 - Hyperlipidemia, unspecified Status: Chronic Assessment and Plan: Continue rosuvastatin (4) Hypertension: Qualifiers: Hypertension type: essential hypertension Qualified Code(s): I10 - Essential (primary) hypertension Code(s): I10 - Essential (primary) hypertension Status: Chronic Assessment and Plan: Blood pressure over the last 24 hours: 155/80, 152/78, 158/87, 158/67, 139/76, 126/79, 139/72, and 157/88. Continue carvedilol 12.5 mg q.12 hours. Lisinopril will be changed to q.12 hours dosing to better cover blood pressures during the night. (dose remains 10 mg daily) on discharge Metanephrines, fraction/free ordered by Dr Newman were received in the lab. Results are still pending. Will continue to monitor her chart for results. Additional Plan 74-year-old lady with coronary artery disease recent acute coronary syndrome just over 1 month ago with PCI to the circumflex and LAD. Okay for discharge if no chest pain with exertion during therapy Subjective Date/time seen: 08/09/19 11:10 Interval history: Follow-up visit for coronary artery disease with multiple readmissions with atypical sounding chest pain. Date of service 08/09/2019 No chest pain. Feels weak. She is feeling better. She is able to ambulate and feels little shaky. Review of Systems Review of Systems: All systems reviewed & are unremarkable except as noted in HPI and below Constitutional: Constitutional: Denies anorexia and Denies fatigue Eyes: Eyes: Reports no additional eye complaints ENT: Reports system reviewed and no additional complaints, except as documented Cardiovascular: Cardiovascular: Denies chest pain, Denies chest pain with activity, Denies syncope, Denies leg edema, Denies lightheadedness, Denies dyspnea and Denies dyspnea on exertion Respiratory: Respiratory: Denies dyspnea and Denies dyspnea on exertion Gastrointestinal: Gastrointestinal: Denies abdominal pain and Denies vomiting Genitourinary: Genitourinary: Denies hematuria Musculoskeletal: Musculoskeletal: Denies tingling Integumentary/Breasts: Skin/Breast: Reports dry skin Neurologic: Denies syncope and Denies tingling Psychiatric: Psychiatric: Denies anxiety
== END 2019-08-09 13:14 | disposition home or self-care (01) | DRG 198 ==
LOC: ANHED 04:55 → ANHIMU 05:18 → ANH3MED 08-04 18:12
PROVIDERS: Family Medicine; Internal Medicine Cardiovascular Disease; Admitting Provider Internal Medicine; Emergency Provider Emergency Medicine; PCP Family Medicine; Visit Provider Family Medicine
DX: I25.119 Atherosclerotic heart disease of native coronary artery with unspecified angina pectoris (principal); F41.1 Generalized anxiety disorder; E78.5 Hyperlipidemia, unspecified; I10 Essential (primary) hypertension; Z91.14 Patient's other noncompliance with medication regimen; Z95.5 Presence of coronary angioplasty implant and graft; Z90.710 Acquired absence of both cervix and uterus; Z79.82 Long term (current) use of aspirin
CPT/HCPCS: 36415; 71046; 80048; 83735; 83835; 84484; 85025; 85610; 85730; 93005; 96374; 97161; 97165; 99285; A9270; G0378; G0379; J0360; J2270